=== PATIENT | female | born 1970 | race Caucasian/White ===

== ENCOUNTER 2017-10-26 14:56 | Emergency (ER) | payer OTHER ==
[~2017-10-26] VITALS: Ht 162.6 cm; Wt 77.0 kg
[2017-10-26 14:57] VITALS: BP 156/72; PULSE 76; RESP 16; TEMP 98.5; O2SAT 99
[2017-10-26 16:33] LABS: AUTOMATED NEUTROPHIL # 5.7 TH/MM3 (1.8-7.7); BASOPHIL # 0.1 TH/MM3 (0-0.2); BASOPHIL % 0.9 % (0.0-2.0); EOSINOPHIL # 0.1 TH/MM3 (0-0.4); EOSINOPHIL % 0.7 % (0.0-4.0); HEMATOCRIT 39.7 % (35.0-46.0); HEMOGLOBIN 13.6 GM/DL (11.6-15.3); LYMPH % 23.4 % (9.0-44.0); MEAN CELL VOLUME 86.8 FL (80.0-100.0); MEAN CORPUSCULAR HEMOGLOBIN 29.9 PG (27.0-34.0); MEAN CORPUSCULAR HGB CONC 34.4 % (32.0-36.0); MONO % 9.2 % (0.0-8.0); MONOCYTE # 0.8 TH/MM3 (0-0.9); NEUT % 65.8 % (16.0-70.0); PLATELET COUNT 243 TH/MM3 (150-450); RED BLOOD COUNT 4.57 MIL/MM3 (4.00-5.30); RED CELL DISTRIBUTION WIDTH 12.7 % (11.6-17.2); WHITE BLOOD COUNT 8.7 TH/MM3 (4.0-11.0)
[2017-10-26 16:54] LABS: ALBUMIN 3.3 GM/DL (3.4-5.0); ALT (GPT) 63 U/L (10-53); AST (GOT) 48 U/L (15-37); BICARBONATE 27.6 MEQ/L (21.0-32.0); BLOOD UREA NITROGEN 24 MG/DL (7-18); CALCIUM 9.1 MG/DL (8.5-10.1); CHLORIDE 98 MEQ/L (98-107); GLOMERULAR FILTRATION RATE 90 ML/MIN (>89); GLUCOSE,RANDOM 83 MG/DL (74-106); SODIUM (NA) 133 MEQ/L (136-145)
[2017-10-26 16:56] LABS: ALKALINE PHOSPHATASE 106 U/L (45-117); TOTAL BILIRUBIN ADULT 0.4 MG/DL (0.2-1.0); TOTAL PROTEIN 7.8 GM/DL (6.4-8.2)
== END 2017-10-26 23:11 | disposition left against medical advice (07) ==
LOC: NETRI 14:56
DX: R11.2 Nausea with vomiting, unspecified (principal)
CPT/HCPCS: 80053; 83690; 85025; 99281

== ENCOUNTER 2017-10-28 12:15 | Emergency (ER) | payer OTHER ==
[~2017-10-28] VITALS: Ht 162.6 cm; Wt 80.0 kg
[2017-10-28 12:18] VITALS: BP 137/68; PULSE 104; RESP 26; TEMP 98.2; O2SAT 99
--- NOTE | 2017-10-28 12:23 | PD ---
HPI Chief Complaint: GI Complaint Time Seen by Provider: 12:22 Travel History International Travel<30 days: No Contact w/Intl Traveler<30days: No Traveled to known affect area: No History of Present Illness HPI 47-year-old female with history of IV drug abuse presents emergency department for evaluation of nausea and vomiting 10 days. Patient takes she last used heroin 4 days ago. She was in the emergency department 2 days ago where protocols were initiated in triage but the patient left prior to being seen. In reviewing those records, the patient's lipase is greater than 800. Patient states she continues to have epigastric pain mostly associated with vomiting. It is burning in nature. Denies any fever but she has had chills. Denies chest or tightness. No difficulty breathing. No bowel or urinary symptoms. She has no other symptoms to report. [facility] Past Medical History Cardiovascular Problems: Yes Chest Pain: Yes Inguinal Hernia: Yes (REPAIRED) Respiratory: Yes ?: Not Tubal Ligation: Yes Past Surgical History Abdominal Surgery: Yes Tonsillectomy: Yes Social History Alcohol Use: Yes Tobacco Use: Yes Substance Use: Yes (COCAINE) Allergies-Medications (Allergen,Severity, Reaction): Coded Allergies: No Known Allergies (Unverified Allergy, Unknown, 10/28/17) Reported Meds & Prescriptions Reported Meds & Active Scripts Active No Active Prescriptions or Reported Medications Review of Systems Except as stated in HPI: all other systems reviewed are Neg Physical Exam Narrative GENERAL: Well-nourished female patient, in no acute distress. SKIN: Focused skin assessment warm/dry. HEAD: Atraumatic. Normocephalic. EYES: Pupils equal and round. No scleral icterus. No injection or drainage. ENT: No nasal bleeding or discharge. Mucous membranes pink and moist. NECK: Trachea midline. No JVD. CARDIOVASCULAR: Regular rate and rhythm. No murmur appreciated. RESPIRATORY: No accessory muscle use. Clear to auscultation. Breath sounds equal bilaterally. GASTROINTESTINAL: Abdomen soft, nondistended. Nonspecific tenderness to palpation in generalized inconsistent areas of the abdomen. No guarding. No rebound tenderness. Hepatic and splenic margins not palpable. MUSCULOSKELETAL: No obvious deformities. No clubbing. No cyanosis. No edema. NEUROLOGICAL: Awake and alert. No obvious cranial nerve deficits. Motor grossly within normal limits. Normal speech. PSYCHIATRIC: Appropriate mood and affect; insight and judgment questionable Data Data Last Documented VS Vital Signs Date Time Temp Pulse Resp B/P (MAP) Pulse Ox O2 Delivery O2 Flow Rate FiO2 10/28/17 12:32 71 17 134/88 (103) 100 Room Air 10/28/17 12:18 98.2 Orders Orders Complete Blood Count With Diff (10/28/17 12:25) Comprehensive Metabolic Panel (10/28/17 12:25) Lipase (10/28/17 12:25) Prothrombin Time / Inr (Pt) (10/28/17 12:25) Act Partial Throm Time (Ptt) (10/28/17 12:25) Urinalysis - C+S If Indicated (10/28/17 12:25) Ct Abd/Pel W Iv Contrast(Rout) (10/28/17 12:25) Iv Access Insert/Monitor (10/28/17 12:25) Ecg Monitoring (10/28/17 12:25) Oximetry (10/28/17 12:25) Ondansetron Inj (Zofran Inj) (10/28/17 12:30) Sodium Chlor 0.9% 1000 Ml Inj (Ns 1000 M (10/28/17 12:25) Sodium Chloride 0.9% Flush (Ns Flush) (10/28/17 12:30) Electrocardiogram (10/28/17 12:25) Ketorolac Inj (Toradol Inj) (10/28/17 12:30) Electrocardiogram (10/28/17 ) Troponin I (10/28/17 12:25) Ckmb (Isoenzyme) Profile (10/28/17 12:25) Iohexol 350 Inj (Omnipaque 350 Inj) (10/28/17 13:21) Urine Culture (10/28/17 12:50) Ed Discharge Order (10/28/17 13:46) Labs Laboratory Tests Test 10/28/17 12:45 10/28/17 12:50 White Blood Count 9.3 TH/MM3 Red Blood Count 4.29 MIL/MM3 Hemoglobin 13.2 GM/DL Hematocrit 36.9 % Mean Corpuscular Volume 86.1 FL Mean Corpuscular Hemoglobin 30.9 PG Mean Corpuscular Hemoglobin Concent 35.9 % Red Cell Distribution Width 12.8 % Platelet Count 251 TH/MM3 Mean Platelet Volume 9.0 FL Neutrophils (%) (Auto) 76.6 % Lymphocytes (%) (Auto) 17.0 % Monocytes (%) (Auto) 5.2 % Eosinophils (%) (Auto) 0.6 % Basophils (%) (Auto) 0.6 % Neutrophils # (Auto) 7.1 TH/MM3 Lymphocytes # (Auto) 1.6 TH/MM3 Monocytes # (Auto) 0.5 TH/MM3 Eosinophils # (Auto) 0.1 TH/MM3 Basophils # (Auto) 0.1 TH/MM3 CBC Comment DIFF FINAL Differential Comment Prothrombin Time 10.1 SEC Prothromb Time International Ratio 1.0 RATIO Activated Partial Thromboplast Time 25.9 SEC Blood Urea Nitrogen 17 MG/DL Creatinine 0.81 MG/DL Random Glucose 95 MG/DL Total Protein 7.3 GM/DL Albumin 3.3 GM/DL Calcium Level 9.0 MG/DL Alkaline Phosphatase 99 U/L Aspartate Amino Transf (AST/SGOT) 42 U/L Alanine Aminotransferase (ALT/SGPT) 63 U/L Total Bilirubin 0.3 MG/DL Sodium Level 137 MEQ/L Potassium Level 3.7 MEQ/L Chloride Level 100 MEQ/L Carbon Dioxide Level 29.8 MEQ/L Anion Gap 7 MEQ/L Estimat Glomerular Filtration Rate 76 ML/MIN Total Creatine Kinase 48 U/L Troponin I LESS THAN 0.02 NG/ML Lipase 299 U/L Urine Color YELLOW Urine Turbidity CLOUDY Urine pH 6.0 Urine Specific [place] 1.026 Urine Protein 30 mg/dL Urine Glucose (UA) NEG mg/dL Urine Ketones TRACE mg/dL Urine Occult Blood NEG Urine Nitrite NEG Urine Bilirubin NEG Urine Urobilinogen 2.0 MG/DL Urine Leukocyte Esterase MOD Urine RBC 1 /hpf Urine WBC 17 /hpf Urine Squamous Epithelial Cells 14 /hpf Urine Amorphous Sediment FEW Urine Bacteria MOD /hpf Urine Hyaline Casts 30 /lpf Urine Mucus MANY /lpf Microscopic Urinalysis Comment CULTURE INDICATED MDM Medical Decision Making Medical Screen Exam Complete: Yes Emergency Medical Condition: Yes Medical Record Reviewed: Yes Differential Diagnosis Pancreatitis versus gastritis versus indigestion versus opiate withdrawal versus dependency Narrative Course 47-year-old female presents to emergency department for evaluation of nausea and vomiting 10 days with associated epigastric burning. Patient appears without distress. Her vital signs are stable. She has inconsistent tenderness to palpation of her general abdomen. No guarding or rebound tenderness. In review of her record, patient did have a lipase of greater than 800 on October 26. Patient is treated for pain and nausea. Lab work is repeated as well CT of the abdomen and pelvis is ordered. Laboratory Tests Test 10/28/17 12:45 10/28/17 12:50 White Blood Count 9.3 TH/MM3 Red Blood Count 4.29 MIL/MM3 Hemoglobin 13.2 GM/DL Hematocrit 36.9 % Mean Corpuscular Volume 86.1 FL Mean Corpuscular Hemoglobin 30.9 PG Mean Corpuscular Hemoglobin Concent 35.9 % Red Cell Distribution Width 12.8 % Platelet Count 251 TH/MM3 Mean Platelet Volume 9.0 FL Neutrophils (%) (Auto) 76.6 % Lymphocytes (%) (Auto) 17.0 % Monocytes (%) (Auto) 5.2 % Eosinophils (%) (Auto) 0.6 % Basophils (%) (Auto) 0.6 % Neutrophils # (Auto) 7.1 TH/MM3 Lymphocytes # (Auto) 1.6 TH/MM3 Monocytes # (Auto) 0.5 TH/MM3 Eosinophils # (Auto) 0.1 TH/MM3 Basophils # (Auto) 0.1 TH/MM3 CBC Comment DIFF FINAL Differential Comment Prothrombin Time 10.1 SEC Prothromb Time International Ratio 1.0 RATIO Activated Partial Thromboplast Time 25.9 SEC Blood Urea Nitrogen 17 MG/DL Creatinine 0.81 MG/DL Random Glucose 95 MG/DL Total Protein 7.3 GM/DL Albumin 3.3 GM/DL Calcium Level 9.0 MG/DL Alkaline Phosphatase 99 U/L Aspartate Amino Transf (AST/SGOT) 42 U/L Alanine Aminotransferase (ALT/SGPT) 63 U/L Total Bilirubin 0.3 MG/DL Sodium Level 137 MEQ/L Potassium Level 3.7 MEQ/L Chloride Level 100 MEQ/L Carbon Dioxide Level 29.8 MEQ/L Anion Gap 7 MEQ/L Estimat Glomerular Filtration Rate 76 ML/MIN Total Creatine Kinase 48 U/L Troponin I LESS THAN 0.02 NG/ML Lipase 299 U/L Urine Color YELLOW Urine Turbidity CLOUDY Urine pH 6.0 Urine Specific [place] 1.026 Urine Protein 30 mg/dL Urine Glucose (UA) NEG mg/dL Urine Ketones TRACE mg/dL Urine Occult Blood NEG Urine Nitrite NEG Urine Bilirubin NEG Urine Urobilinogen 2.0 MG/DL Urine Leukocyte Esterase MOD Urine RBC 1 /hpf Urine WBC 17 /hpf Urine Squamous Epithelial Cells 14 /hpf Urine Amorphous Sediment FEW Urine Bacteria MOD /hpf Urine Hyaline Casts 30 /lpf Urine Mucus MANY /lpf Microscopic Urinalysis Comment CULTURE INDICATED CT imaging results 1. 2 mm nonobstructing right renal stone. 2. 2 hypodensities in the liver likely related to cysts or hemangiomas. 3. Soft tissue density seen immediately deep to the anterior abdominal wall musculature in the upper abdomen in the midline. This is nonspecific. It could be related to postsurgical change if the patient's had a prior midline incision. There appears to be possible postoperative change in the midline of the anterior abdominal wall in this region. Patient will be discharged home. She is encouraged follow-up with primary care provider. She is encouraged to stop using IV drugs. She agrees to return immediately with any acute worsening of symptoms. Diagnosis Primary Impression: Nausea & vomiting Qualified Codes: R11.2 - Nausea with vomiting, unspecified Additional Impressions: UTI (urinary tract infection) Qualified Codes: N39.0 - Urinary tract infection, site not specified IV drug abuse Referrals: [facility] (Out patient) Primary Care Physician Patient Instructions: General Instructions, Narcotic Abuse (ED), Urinary Tract Infection in Women (ED) Additional Instructions: It is important that you stop using IV drugs Follow-up with a primary care provider Return immediately with any acute worsening of symptoms Med/Other Pt SpecificInfo: Prescription(s) given Scripts Promethazine (Phenergan) 25 Mg Tablet 25 MG PO Q6H Y for NAUSEA OR VOMITING, #10 TAB 0 Refills Prov: Hanh Carrizales 10/28/17 Cephalexin (Keflex) 500 Mg Cap 500 MG PO Q12H for Infection, #14 CAP 0 Refills Prov: Hanh Carrizales 10/28/17 Disposition: 01 DISCHARGE HOME Condition: Stable Hanh Carrizales Oct 28, 2017 12:23
[2017-10-28] MEDS ORDERED: SODIUM CHLOR 0.9% 1000 ML INJ 1,000 ML IV SCH (12:25)
[2017-10-28] MEDS ORDERED: KETOROLAC TROMETHAMINE 30 MG/ML (IVP) VIAL IVP ONE (12:30)
[2017-10-28] MEDS ORDERED: ONDANSETRON HCL 4 MG/2 ML VIAL IVP ONE (12:30)
[2017-10-28] MEDS ORDERED: SODIUM CHLORIDE 0.9% FLUSH 10 ML FLUSH IV FLUSH PRN (12:30)
[2017-10-28 12:32] VITALS: BP 134/88; PULSE 71; RESP 17; O2SAT 100
[2017-10-28] MEDS ORDERED: IOHEXOL 350 MG/ML 10 ML VIAL (for RAD DIAG) IVCONTRAST ONE (13:21)
[2017-10-28 13:27] LABS: AUTOMATED NEUTROPHIL # 7.1 TH/MM3 (1.8-7.7); BASOPHIL # 0.1 TH/MM3 (0-0.2); BASOPHIL % 0.6 % (0.0-2.0); EOSINOPHIL # 0.1 TH/MM3 (0-0.4); EOSINOPHIL % 0.6 % (0.0-4.0); HEMATOCRIT 36.9 % (35.0-46.0); HEMOGLOBIN 13.2 GM/DL (11.6-15.3); LYMPHOCYTE # 1.6 TH/MM3 (1.0-4.8); MEAN CELL VOLUME 86.1 FL (80.0-100.0); MEAN CORPUSCULAR HEMOGLOBIN 30.9 PG (27.0-34.0); MEAN CORPUSCULAR HGB CONC 35.9 % (32.0-36.0); MONO % 5.2 % (0.0-8.0); MONOCYTE # 0.5 TH/MM3 (0-0.9); NEUT % 76.6 % (16.0-70.0); PLATELET COUNT 251 TH/MM3 (150-450); RED BLOOD COUNT 4.29 MIL/MM3 (4.00-5.30); RED CELL DISTRIBUTION WIDTH 12.8 % (11.6-17.2); WHITE BLOOD COUNT 9.3 TH/MM3 (4.0-11.0)
[2017-10-28 13:28] LABS: AMORPHOUS SEDIMENT, URINE FEW; BACTERIA, URINE MOD /hpf; BILIRUBIN, URINE NEG (NEG); BLOOD, URINE NEG (NEG); GLUCOSE,URINE NEG (NEG); HYALINE CAST, URINE 30 /lpf (RARE); KETONE, URINE TRACE mg/dL (NEG); MUCUS URINE MANY /lpf (OCC); NITRITE,URINE NEG (NEG); SQUAMOUS EPITHELIAL CELL URINE 14 /hpf (0-5); URINE COLOR YELLOW (YELLW/STRAW); URINE LEUKOCYTE ESTERASE MOD (NEG)
[2017-10-28 13:30] LABS: PROTHROMBIN TIME - PATIENT 10.1 SEC (9.8-11.6)
[2017-10-28 13:38] LABS: ALBUMIN 3.3 GM/DL (3.4-5.0); ALT (GPT) 63 U/L (10-53); AST (GOT) 42 U/L (15-37); BICARBONATE 29.8 MEQ/L (21.0-32.0); BLOOD UREA NITROGEN 17 MG/DL (7-18); CHLORIDE 100 MEQ/L (98-107); CREATININE 0.81 MG/DL (0.50-1.00); GLOMERULAR FILTRATION RATE 76 ML/MIN (>89); GLUCOSE,RANDOM 95 MG/DL (74-106); SODIUM (NA) 137 MEQ/L (136-145)
--- NOTE | 2017-10-28 13:40 | RADRPT ---
EXAM DATE/TIME: 10/28/2017 13:10 [place] COMPARISON: No previous studies available for comparison. INDICATIONS : Nausea, vomiting and diffuse abdomen pain for nine days. IV CONTRAST: 56 cc Omnipaque 350 (iohexol) IV ORAL CONTRAST: No oral contrast ingested. RADIATION DOSE: 8.01 CTDIvol (mGy) MEDICAL HISTORY : Hernia, inguinal. Cardiovascular disease SURGICAL HISTORY : Tubal ligation. ENCOUNTER: Initial ACUITY: 2 weeks PAIN SCALE: 5/10 LOCATION: Bilateral abdomen TECHNIQUE: Volumetric scanning of the abdomen and pelvis was performed. Using automated exposure control and ad justment of the mA and/or kV according to patient size, radiation dose was kept as low as reasonably achievable to obtain optimal diagnostic quality images. DICOM format image data is available electro nically for review and comparison. FINDINGS: LOWER LUNGS: There is increased density at the posterior lower lungs bilaterally likely related to consolidation o r atelectasis. LIVER: There are two 1.2 cm hypodensities seen in the right lobe of the liver. These likely represent cysts or hemangiomas. The gallbladder is unremarkable. SPLEEN: Normal size without lesion. PANCREAS: Within normal limits. KIDNEYS: Normal in size and shape. There is a 2 mm nonobstructing right renal stone. There is no mass or hydr onephrosis. ADRENAL GLANDS: Within normal limits. VASCULAR: There is no aortic aneurysm. BOWEL/MESENTERY: The stomach, small bowel, and colon demonstrate no acute abnormality. There is no free intraperitone al air or fluid. ABDOMINAL WALL: There is narrowing of soft tissue density seen immediately deep to the anterior abdominal wall at the midline over the upper abdomen above the umbilicus measuring 4.5 cm transverse dimension, 3.9 cm in AP dimension and 1.1 cm in thickness. This could be related to postsurgical change if the patient's m idline incision. RETROPERITONEUM: There is no lymphadenopathy. BLADDER: No wall thickening or mass. REPRODUCTIVE: There are clips seen at the superior lateral aspects of the uterus likely from prior tubal ligation. INGUINAL: There is no lymphadenopathy or hernia. MUSCULOSKELETAL: Within normal limits for patient age. CONCLUSION: 1. 2 mm nonobstructing right renal stone. 2. 2 hypodensities in the liver likely related to cysts or hemangiomas. 3. Soft tissue density seen immediately deep to the anterior abdominal wall musculature in the upper abdomen in the midline. This is nonspecific. It could be related to postsurgical change if the patien t's had a prior midline incision. There appears to be possible postoperative change in the midline of the anterior abdominal wall in this region. Jack Suarez MD on October 28, 2017 at 13:25 Board Certified Radiologist. This report was verified electronically.
[2017-10-28 13:43] LABS: ALKALINE PHOSPHATASE 99 U/L (45-117); TOTAL BILIRUBIN ADULT 0.3 MG/DL (0.2-1.0); TOTAL PROTEIN 7.3 GM/DL (6.4-8.2); TROPONIN I LESS THAN 0.02 NG/ML (0.02-0.05)
[2017-10-28] MEDS ORDERED: PROM25TA10 PO (13:54)
[2017-10-28] MEDS ORDERED: CEPH-460 PO (13:54)
--- NOTE | 2017-10-29 14:34 | EKG ---
Date Performed: 10/28/2017 Time Performed: 12:41:59 PTAGE: 47 years EKG: SINUS BRADYCARDIA BORDERLINE ECG Normalization of ST compared to prior tracing PREVIOUS TRACING : 01/09/2014 17.55 DOCTOR: Kervin Lora Interpretating Date/Time 10/29/2017 14:33:28
== END 2017-10-28 14:43 | disposition home or self-care (01) ==
LOC: NEPE 12:15
DX: R11.2 Nausea with vomiting, unspecified (principal); N39.0 Urinary tract infection, site not specified; R10.13 Epigastric pain; N20.0 Calculus of kidney; R94.31 Abnormal electrocardiogram [ECG] [EKG]; F14.90 Cocaine use, unspecified, uncomplicated; Z72.0 Tobacco use
CPT/HCPCS: 74177; 80053; 81001; 82550; 83690; 84484; 85025; 85610; 85730; 87086; 93005; 96374; 96375; 99285; J1885; J2405; J7030; Q9967

== ENCOUNTER 2018-01-12 22:32 | Emergency (ER) | payer OTHER ==
[~2018-01-12] VITALS: Ht 162.6 cm; Wt 80.0 kg
[~2018-01-12 22:32] MED LIST: CEPH-460 PO; PROM25TA10 PO
[2018-01-12 22:42] VITALS: BP 117/73; PULSE 88; RESP 18; TEMP 98.6; O2SAT 97
--- NOTE | 2018-01-12 23:17 | PD ---
HPI Chief Complaint: Psychiatric Symptoms Time Seen by Provider: 23:09 Travel History International Travel<30 days: No Contact w/Intl Traveler<30days: No Traveled to known affect area: No History of Present Illness HPI 47-year-old white female presents emergency department under [place] act by PD. Patient allegedly had made suicidal statements. She has been drinking a large amount of alcohol. After conversation with the nursing staff it was revealed to the nurse that she had intentionally overdosed on 20-30 ibuprofen tablets 200 mg. The ingestion occurred approximately 8:00 PM. The patient denies any other coingestion. There is also alleged ingestion of bleach 2 weeks ago. She states that she had swallowed amount of bleach but was never seen at that time. She states that she did vomit immediately. She has not had any difficulty swallowing since then. No shortness of breath or wheezing. Patient denies any drug use. She denies any homicidal ideation. She denies any active plan on suicide other than her ingestion. Symptoms are severe. Symptoms are exacerbated by alcohol and depression. No alleviating factors. PFSH Past Medical History Narrative Medical COPD, pancreatitis. History of depression. Cardiovascular Problems: Yes Chest Pain: Yes Inguinal Hernia: Yes (REPAIRED) Respiratory: Yes Tetanus Vaccination: < 5 Years ?: Not LMP: 12/31/2017 Tubal Ligation: Yes Past Surgical History Tonsillectomy: Yes Other Surgery: Yes (Inguinal herniorrhaphy) Social History Alcohol Use: Yes Tobacco Use: Yes Substance Use: No Allergies-Medications (Allergen,Severity, Reaction): Coded Allergies: No Known Allergies (Unverified Allergy, Unknown, 10/28/17) Reported Meds & Prescriptions Reported Meds & Active Scripts Active Phenergan (Promethazine HCl) 25 Mg Tablet 25 Mg PO Q6H PRN Keflex (Cephalexin) 500 Mg Cap 500 Mg PO Q12H Review of Systems General / Constitutional: No: Fever Eyes: No: Visual changes HENT: No: Headaches Cardiovascular: No: Chest Pain or Discomfort Respiratory: No: Shortness of Breath Gastrointestinal: No: Nausea, Vomiting, Abdominal Pain Genitourinary: No: Dysuria Musculoskeletal: No: Pain Skin: No Rash Neurologic: No: Weakness Psychiatric: Positive: Depression, Suicidal Ideations, Mood Disorder, No: Anxiety, Disorder of Thought, Substance Abuse, Homicidal Ideation Endocrine: No: Polydipsia Hematologic/Lymphatic: No: Easy Bruising Physical Exam Narrative GENERAL: Well-nourished, well-developed patient. SKIN: Warm and dry. HEAD: Normocephalic and atraumatic. EYES: No scleral icterus. No injection or drainage. ENT: No nasal drainage noted. Mucous membranes pink. Airway patent. NECK: Supple, trachea midline. Moves head freely without obvious discomfort. CARDIOVASCULAR: Regular rate and rhythm without murmurs, gallops, or rubs. RESPIRATORY: Breath sounds equal bilaterally. No accessory muscle use. GASTROINTESTINAL: Abdomen soft, non-tender, nondistended. EXTREMITIES: No cyanosis or edema. BACK: Nontender without obvious deformity. No CVA tenderness. NEURO: Patient is alert and oriented. no sensorimotor deficits. Nonfocal. Normal speech. PSYCH: No delusions. No auditory or visual hallucinations. Data Data Last Documented VS Vital Signs Date Time Temp Pulse Resp B/P (MAP) Pulse Ox O2 Delivery O2 Flow Rate FiO2 01/12/18 22:42 98.6 88 18 117/73 (88) 97 Orders Orders Complete Blood Count With Diff (01/12/18 23:09) Comprehensive Metabolic Panel (01/12/18 23:09) Thyroid Stimulating Hormone (01/12/18 23:09) Urinalysis - C+S If Indicated (01/12/18 23:09) Ed Urine Pregnancytest Poc (01/12/18 23:09) Electrocardiogram (01/12/18 23:09) Psych Screen (01/12/18 23:09) Drug Screen, Random Urine (01/12/18 23:09) Alcohol (Ethanol) (01/12/18 23:09) Salicylates (Aspirin) (01/12/18 23:09) Tylenol (Acetaminophen) (01/12/18 23:09) MDM Medical Decision Making Medical Screen Exam Complete: Yes Emergency Medical Condition: Yes Medical Record Reviewed: Yes Differential Diagnosis MDM: High Differential diagnoses: Overdose, schizophrenia, schizoaffective disorder, bipolar, anxiety, depression, adjustment reaction, mood disorder NOS, ODD, depressive disorder NOS, psychosis NOS, substance induced mood disorder, infection,electrolyte abnormality, malingering. Narrative Course Mental health screening discussed with the patient. Psychiatric screen ordered. Nursing staff has been advised to notify poison control. Patient's ingestion is not typically toxic. Patient will be monitored. Condition: Stable Bradley Reeves January 12, 2018 23:17
[2018-01-12 23:56] LABS: AUTOMATED NEUTROPHIL # 4.5 TH/MM3 (1.8-7.7); BASOPHIL # 0.1 TH/MM3 (0-0.2); EOSINOPHIL # 0.1 TH/MM3 (0-0.4); EOSINOPHIL % 1.2 % (0.0-4.0); HEMATOCRIT 42.8 % (35.0-46.0); HEMOGLOBIN 14.5 GM/DL (11.6-15.3); LYMPH % 34.1 % (9.0-44.0); LYMPHOCYTE # 2.8 TH/MM3 (1.0-4.8); MEAN CELL VOLUME 86.6 FL (80.0-100.0); MEAN CORPUSCULAR HEMOGLOBIN 29.3 PG (27.0-34.0); MEAN CORPUSCULAR HGB CONC 33.9 % (32.0-36.0); MEAN PLATELET VOLUME 7.7 FL (7.0-11.0); MONO % 9.1 % (0.0-8.0); MONOCYTE # 0.8 TH/MM3 (0-0.9); NEUT % 54.6 % (16.0-70.0); PLATELET COUNT 310 TH/MM3 (150-450); RED BLOOD COUNT 4.95 MIL/MM3 (4.00-5.30); RED CELL DISTRIBUTION WIDTH 15.2 % (11.6-17.2); WHITE BLOOD COUNT 8.2 TH/MM3 (4.0-11.0)
[2018-01-12 23:56] LABS: BILIRUBIN, URINE NEG (NEG); BLOOD, URINE NEG (NEG); GLUCOSE,URINE NEG (NEG); KETONE, URINE NEG (NEG); NITRITE,URINE NEG (NEG); PH, URINE 5.5 (5.0-8.5); SQUAMOUS EPITHELIAL CELL URINE 3 /hpf (0-5); URINE COLOR COLORLESS (YELLW/STRAW); URINE LEUKOCYTE ESTERASE NEG (NEG)
[2018-01-13 00:12] LABS: ALBUMIN 3.6 GM/DL (3.4-5.0); AST (GOT) 34 U/L (15-37); BICARBONATE 28.1 MEQ/L (21.0-32.0); BLOOD UREA NITROGEN 14 MG/DL (7-18); CALCIUM 8.1 MG/DL (8.5-10.1); CHLORIDE 109 MEQ/L (98-107); CREATININE 0.81 MG/DL (0.50-1.00); GLOMERULAR FILTRATION RATE 76 ML/MIN (>89); GLUCOSE,RANDOM 83 MG/DL (74-106); SODIUM (NA) 145 MEQ/L (136-145)
[2018-01-13 00:23] LABS: ALKALINE PHOSPHATASE 100 U/L (45-117); ALT (GPT) 37 U/L (10-53); TOTAL BILIRUBIN ADULT 0.2 MG/DL (0.2-1.0); TOTAL PROTEIN 8.1 GM/DL (6.4-8.2)
[2018-01-13 00:33] LABS: ACETAMINOPHEN LESS THAN 2.0 MCG/ML (10.0-30.0)
[2018-01-13 02:11] VITALS: BP 109/64; PULSE 84; RESP 18; TEMP 97.8; O2SAT 98
[2018-01-13 06:35] VITALS: BP 111/61; PULSE 78; RESP 18; TEMP 99.2; O2SAT 94
--- NOTE | 2018-01-13 11:05 | PD ---
History of Present Illness Chief Complaint: Psychiatric Symptoms Time Seen by Provider: 10:15 Travel History International Travel<30 Days: No Contact w/Intl Traveler<30days: No Known affected area: No Legal Status Legal Status: Geronimo Act Geronimo Act Signed By: Roly Rueda History of Present Illness: Patient is a 47-year-old female , with 9 children who was placed under a Geronimo act by [employer]. Geronimo act states; Latasha has a history of mental illness, is not on medication, and recently drank bleach to harm herself she call 911 today and stated that she wanted to harm herself, but would not discuss the means. Currently, she is alert and oriented 4, alcohol and admits to suicidal ideation. She reports that she is going to run if she did not get help. Her reports that she made statements to him regarding having no will to live. Patient states that she was in residential for two years from 03/07/16 until 08/27/17. 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 She states that she loves her job and is doing well. She has nine children between the ages of 8 to 30 years old and they live with their father. She has recently been able to speak to a few of them. Her current boyfriend "" is an alcoholic and is homeless. He is not allowed in the motel because one of the stipulations is that she will not have any guests. She states that the bleach bottle had a leak and she only had a sprite bottle , so she placed the bleach in the sprite bottle. She thought she was going to drink sprite when she sipped the bottle containing the bleach. She states that this was "totally an accident" and she had no intention of harming herself. She has had care for her depression and anxiety, but need to re-establish a provider. Her alcohol level on arrival was 285. Chart reviewed and patient discussed with ROLA Ortega. Patient is in room J104 in the Emergency Department. Patient is alert and oriented x4. She has good eye contact and engages in conversation. She is well kept and has a "smokers cough." Fund of knowledge is good. Insight and judgement good. She has good recall of past events. She is euthymic and anxious. no abnormal thought processes. Steady gait and very flexible. Patient acknowledges many stressors : her boyfriend "'s" drinking; financial and not being able to see her children. She states that her current job is the best thing that has happened to her. The [employer] loves her and she is happy working there. She feels that she has a roof over her head and food which keeps her going. She did disclose that she has had multiple suicidal ideations ( x18) in the past. She endorses no suicidal ideation today. She is pre-occupied with returning to the [employer] so that she does not loose her job. Dx: Mood Disorder, Alcohol Induced ; Alcohol Abuse Disorder PFSH Past Medical History Cardiovascular Problems: Yes Chest Pain: Yes Inguinal Hernia: Yes (REPAIRED) Respiratory: Yes Tetanus Vaccination: < 5 Years ?: Not LMP: 12/31/2017 Tubal Ligation: Yes Past Surgical History Tonsillectomy: Yes Other Surgery: Yes (Inguinal herniorrhaphy) Psychiatric History Psychiatric History She is recently out of residential. Has a history of depression and anxiety . She needs to re-establish with a provider. Hx Psychiatric Treatment: Patient with a self-reported hx of depression. History of Inpatient Treatment: No Social History Hx Alcohol Use: Yes Hx Tobacco Use: Yes Hx Substance Use: No Substance Use Type: Alcohol, Nicotine/Cigarettes Hx of Substance Use Treatment: No Allergies-Medications (Allergen,Severity, Reaction): Coded Allergies: No Known Allergies (Unverified Allergy, Unknown, 10/28/17) Reported Meds & Prescriptions Reported Meds & Active Scripts Active Phenergan (Promethazine HCl) 25 Mg Tablet 25 Mg PO Q6H PRN Keflex (Cephalexin) 500 Mg Cap 500 Mg PO Q12H Mental Status Examination Appearance: Appropriate Consciousness: Alert Orientation: x4 Motor Activity: Normal gait Speech: Unremarkable Language: Adequate Fund of Knowledge: Adequate Attention and Concentration: Adequate Memory: Unremarkable Mood: Appropriate Affect: Euthymic Thought Process & Associations: Intact Thought Content: Appropriate Hallucination Type: None Delusion Type: None Suicidal Ideation: No Suicidal Plan: No Suicidal Intention: No Homicidal Ideation: No Homicidal Plan: No Homicidal Intention: No Insight: Adequate Judgment: Adequate MDM Medical Decision Making Medical Record Reviewed: Yes Assessment/Plan Patient is a 47 y/o female with multiple stressors: recently released from residential, is an alcoholic, financial and unable to see her children. She was placed under a Geronimo Act by her . She lives in a motel and works at the motel. is homeless and she is not allowed to have any guests. Patient states she was just anxious yesterday and has no suicidal ideations. She had an alcohol level of 285. Today she is alert and oriented. She is preoccupied with returning to the motel so that she does not loose her job. Patient is at low risk for self harm or harm to others. She is willing to follow up to be treated for her depression and anxiety. She is at low risk for self harm. Will lift the Geronimo Act and give the patient information on [facility] for assistance with her depression and anxiety, as well as, information on the [facility] for treatment regarding alcohol use. Orders Orders Complete Blood Count With Diff (01/12/18 23:09) Comprehensive Metabolic Panel (01/12/18 23:09) Thyroid Stimulating Hormone (01/12/18 23:09) Urinalysis - C+S If Indicated (01/12/18 23:09) Ed Urine Pregnancytest Poc (01/12/18 23:09) Electrocardiogram (01/12/18 23:09) Psych Screen (01/12/18 23:09) Drug Screen, Random Urine (01/12/18 23:09) Alcohol (Ethanol) (01/12/18 23:09) Salicylates (Aspirin) (01/12/18 23:09) Tylenol (Acetaminophen) (01/12/18 23:09) Diet Regular Basic (01/13/18 Breakfast) Results Vital Signs Date Time Temp Pulse Resp B/P (MAP) Pulse Ox O2 Delivery O2 Flow Rate FiO2 01/13/18 06:35 99.2 78 18 111/61 (78) 94 Room Air 01/13/18 02:11 97.8 84 18 109/64 (79) 98 Room Air 01/12/18 22:42 98.6 88 18 117/73 (88) 97 Laboratory Tests Test 01/12/18 22:49 01/12/18 22:59 Urine Color COLORLESS Urine Turbidity CLEAR Urine pH 5.5 Urine Specific [place] 1.002 Urine Protein NEG Urine Glucose (UA) NEG Urine Ketones NEG Urine Occult Blood NEG Urine Nitrite NEG Urine Bilirubin NEG Urine Urobilinogen LESS THAN 2.0 Urine Leukocyte Esterase NEG Urine RBC LESS THAN 1 Urine WBC LESS THAN 1 Urine Squamous Epithelial Cells 3 Microscopic Urinalysis Comment CULT NOT INDICATED Urine Opiates Screen NEG Urine Barbiturates Screen NEG Urine Amphetamines Screen NEG Urine Benzodiazepines Screen NEG Urine Cocaine Screen NEG Urine Cannabinoids Screen NEG White Blood Count 8.2 Red Blood Count 4.95 Hemoglobin 14.5 Hematocrit 42.8 Mean Corpuscular Volume 86.6 Mean Corpuscular Hemoglobin 29.3 Mean Corpuscular Hemoglobin Concent 33.9 Red Cell Distribution Width 15.2 Platelet Count 310 Mean Platelet Volume 7.7 Neutrophils (%) (Auto) 54.6 Lymphocytes (%) (Auto) 34.1 Monocytes (%) (Auto) 9.1 Eosinophils (%) (Auto) 1.2 Basophils (%) (Auto) 1.0 Neutrophils # (Auto) 4.5 Lymphocytes # (Auto) 2.8 Monocytes # (Auto) 0.8 Eosinophils # (Auto) 0.1 Basophils # (Auto) 0.1 CBC Comment DIFF FINAL Differential Comment Blood Urea Nitrogen 14 Creatinine 0.81 Random Glucose 83 Total Protein 8.1 Albumin 3.6 Calcium Level 8.1 Alkaline Phosphatase 100 Aspartate Amino Transf (AST/SGOT) 34 Alanine Aminotransferase (ALT/SGPT) 37 Total Bilirubin 0.2 Sodium Level 145 Potassium Level 4.1 Chloride Level 109 Carbon Dioxide Level 28.1 Anion Gap 8 Estimat Glomerular Filtration Rate 76 Thyroid Stimulating Hormone 3rd Gen 1.540 Salicylates Level 3.0 Acetaminophen Level LESS THAN 2.0 Ethyl Alcohol Level 285 Diagnosis Primary Impression: Depression with anxiety Additional Impression: Alcohol use disorder Disposition: 01 DISCHARGE HOME Condition: Stable Problem Qualifiers Liza Mayer January 13, 2018 11:05
--- NOTE | 2018-01-13 11:39 | PD ---
Physical Exam Date Seen by Provider: January 13, 2018 Time Seen by Provider: 11:35 Narrative 47-year-old female previously Geronmio acted and medically cleared for psychiatric evaluation, has been seen and evaluated by psychiatric staff and deemed psychiatrically stable for discharge at this time. Patient remains medically stable for discharge at this time. Follow-up will be based on psychiatric note. Data Data Last Documented VS Vital Signs Date Time Temp Pulse Resp B/P (MAP) Pulse Ox O2 Delivery O2 Flow Rate FiO2 01/13/18 06:35 99.2 78 18 111/61 (78) 94 Room Air Orders Orders Complete Blood Count With Diff (01/12/18 23:09) Comprehensive Metabolic Panel (01/12/18 23:09) Thyroid Stimulating Hormone (01/12/18 23:09) Urinalysis - C+S If Indicated (01/12/18 23:09) Ed Urine Pregnancytest Poc (01/12/18 23:09) Electrocardiogram (01/12/18 23:09) Psych Screen (01/12/18 23:09) Drug Screen, Random Urine (01/12/18 23:09) Alcohol (Ethanol) (01/12/18 23:09) Salicylates (Aspirin) (01/12/18 23:09) Tylenol (Acetaminophen) (01/12/18 23:09) Diet Regular Basic (01/13/18 Breakfast) Diet Regular Basic (01/13/18 Lunch) Labs Laboratory Tests Test 01/12/18 22:49 01/12/18 22:59 Urine Color COLORLESS Urine Turbidity CLEAR Urine pH 5.5 Urine Specific [place] 1.002 Urine Protein NEG mg/dL Urine Glucose (UA) NEG mg/dL Urine Ketones NEG mg/dL Urine Occult Blood NEG Urine Nitrite NEG Urine Bilirubin NEG Urine Urobilinogen LESS THAN 2.0 MG/DL Urine Leukocyte Esterase NEG Urine RBC LESS THAN 1 /hpf Urine WBC LESS THAN 1 /hpf Urine Squamous Epithelial Cells 3 /hpf Microscopic Urinalysis Comment CULT NOT INDICATED Urine Opiates Screen NEG Urine Barbiturates Screen NEG Urine Amphetamines Screen NEG Urine Benzodiazepines Screen NEG Urine Cocaine Screen NEG Urine Cannabinoids Screen NEG White Blood Count 8.2 TH/MM3 Red Blood Count 4.95 MIL/MM3 Hemoglobin 14.5 GM/DL Hematocrit 42.8 % Mean Corpuscular Volume 86.6 FL Mean Corpuscular Hemoglobin 29.3 PG Mean Corpuscular Hemoglobin Concent 33.9 % Red Cell Distribution Width 15.2 % Platelet Count 310 TH/MM3 Mean Platelet Volume 7.7 FL Neutrophils (%) (Auto) 54.6 % Lymphocytes (%) (Auto) 34.1 % Monocytes (%) (Auto) 9.1 % Eosinophils (%) (Auto) 1.2 % Basophils (%) (Auto) 1.0 % Neutrophils # (Auto) 4.5 TH/MM3 Lymphocytes # (Auto) 2.8 TH/MM3 Monocytes # (Auto) 0.8 TH/MM3 Eosinophils # (Auto) 0.1 TH/MM3 Basophils # (Auto) 0.1 TH/MM3 CBC Comment DIFF FINAL Differential Comment Blood Urea Nitrogen 14 MG/DL Creatinine 0.81 MG/DL Random Glucose 83 MG/DL Total Protein 8.1 GM/DL Albumin 3.6 GM/DL Calcium Level 8.1 MG/DL Alkaline Phosphatase 100 U/L Aspartate Amino Transf (AST/SGOT) 34 U/L Alanine Aminotransferase (ALT/SGPT) 37 U/L Total Bilirubin 0.2 MG/DL Sodium Level 145 MEQ/L Potassium Level 4.1 MEQ/L Chloride Level 109 MEQ/L Carbon Dioxide Level 28.1 MEQ/L Anion Gap 8 MEQ/L Estimat Glomerular Filtration Rate 76 ML/MIN Thyroid Stimulating Hormone 3rd Gen 1.540 uIU/ML Salicylates Level 3.0 MG/DL Acetaminophen Level LESS THAN 2.0 MCG/ML Ethyl Alcohol Level 285 MG/DL [facility] Medical Record Reviewed: Yes Supervised Visit with NICOLA: Yes Narrative Course 47-year-old female previously Geronimo acted and medically cleared for psychiatric evaluation, has been seen and evaluated by psychiatric staff and deemed psychiatrically stable for discharge at this time. Patient remains medically stable for discharge at this time. Follow-up will be based on psychiatric note. Diagnosis Primary Impression: Depression with anxiety Additional Impression: Alcohol use disorder Disposition: DISCHARGE HOME Condition: Stable Yordan Pichardo January 13, 2018 11:39
--- NOTE | 2018-01-13 17:14 | EKG ---
Date Performed: 01/12/2018 Time Performed: 23:23:03 PTAGE: 47 years EKG: Sinus rhythm ARM LEADS REVERSED ATYPICAL ECG Compared to PREVIOUS TRACING , rate faster DOCTOR: Suzy Pugh Interpretating Date/Time 01/13/2018 17:12:21
== END 2018-01-13 12:33 | disposition home or self-care (01) ==
LOC: NEPJ 22:32
DX: F41.8 Other specified anxiety disorders (principal); R45.851 Suicidal ideations; R07.9 Chest pain, unspecified; J44.9 Chronic obstructive pulmonary disease, unspecified; F10.129 Alcohol abuse with intoxication, unspecified; Y90.8 Blood alcohol level of 240 mg/100 ml or more; Z72.0 Tobacco use
CPT/HCPCS: 80053; 80307; 81001; 84443; 84703; 85025; 93005; 99284

== ENCOUNTER 2018-01-23 02:14 | Inpatient (IN) | payer OTHER ==
[2018-01-23] VITALS (18 sets, daily range): BP systolic 93–124; BP diastolic 53–77; PULSE 62–87; RESP 16–32; TEMP 97.8–98.5; O2SAT 96–100
[~2018-01-23] VITALS: Ht 162.6 cm; Wt 76.0 kg
[2018-01-23] MEDS ORDERED: SODIUM CHLOR 0.9% 1000 ML INJ 1,000 ML IV ONE (02:26)
[2018-01-23] MEDS ORDERED: SODIUM CHLORIDE 0.9% FLUSH 10 ML FLUSH IVF PRN ×2 (02:30→02:45)
--- NOTE | 2018-01-23 02:33 | PD ---
HPI Chief Complaint: Psychiatric Symptoms Time Seen by Provider: 02:26 Travel History International Travel<30 days: No Contact w/Intl Traveler<30days: No Traveled to known affect area: No History of Present Illness HPI The patient is a 47 year old female who presents to the [facility] emergency department with a history of intentionally overdosing on aspirin prior to arrival. The patient bought a bottle of aspirin at a local store at approximately 11 PM and shortly thereafter she took a handful of the aspirin tablets. She reports that she then had nausea vomiting 1. She reports that she thought that she may be vomiting the aspirin related to not eating. She then ate a meal and intermittently since then over the next 2 hours was ingesting handfuls of aspirin. The bottle brought in by the patient's EMS crew has 120 tablets missing. The aspirin tablet is a 325 mg tablet. The patient reports that she has vomited again 1. The emesis was able to be viewed by ambulance services and contained pill fragments. The patient reports a long- standing history of bipolar disorder, schizophrenia, and OCD. She reports that she is supposed to be on medication, however she cannot afford it. She denies having a primary care physician. The patient reports on further questioning that she does not necessarily want to , however she does not want to live any longer. On review of systems otherwise, the patient denies having any recent fevers, cough or congestion, neck pain, chest pain, shortness of breath, abdominal pain, diarrhea, urinary symptoms, or neurologic symptoms. PFSH Past Medical History Narrative Medical The patient's past medical history is significant for pancreatitis, history of myocardial infarction, history of schizophrenia, bipolar disorder, history of obsessive-compulsive disorder, prior history of suicide attempts. Bipolar Disorder: Yes Anxiety: Yes Cardiovascular Problems: Yes Chest Pain: Yes Diminished Hearing: No Inguinal Hernia: Yes (REPAIRED) Medical other: Yes (PANCREATITIS) Respiratory: Yes Myocardial Infarction: Yes Schizophrenia: Yes ?: Not Tubal Ligation: Yes Past Surgical History Narrative Surgical The patient's past surgical history is significant for a tonsillectomy, hernia repair 2. Abdominal Surgery: Yes Tonsillectomy: Yes Other Surgery: Yes (Inguinal herniorrhaphy) Social History Alcohol Use: Yes (OCC) Tobacco Use: Yes (1.5 PPD) Substance Use: No Allergies-Medications (Allergen,Severity, Reaction): Coded Allergies: No Known Allergies (Unverified Allergy, Unknown, 10/28/17) Reported Meds & Prescriptions Reported Meds & Active Scripts Active No Active Prescriptions or Reported Medications Review of Systems Except as stated in HPI: all other systems reviewed are Neg General / Constitutional: No: Fever Eyes: No: Visual changes HENT: No: Headaches Cardiovascular: No: Chest Pain or Discomfort Respiratory: No: Shortness of Breath Gastrointestinal: Positive: Nausea, Vomiting, No: Abdominal Pain Genitourinary: No: Dysuria Musculoskeletal: No: Pain Skin: No Rash Neurologic: No: Weakness, Focal Abnormalities, Change in Mentation, Slurred Speech, Sensory Disturbance Psychiatric: Positive: Depression, Suicidal Ideations, Mood Disorder, No: Homicidal Ideation Endocrine: No: Polydipsia Hematologic/Lymphatic: No: Easy Bruising Physical Exam Narrative General: The patient is a well-developed well-nourished female in no acute medical distress, however she is tearful on examination. Head and Neck exam: Head is normocephalic atraumatic. Eyes: EOMI, pupils are equal round and reactive to light. Nose: Midline septum with pink mucous membranes Mouth: Dentition unremarkable. Moist mucus membranes. Posterior oropharynx is not erythematous. No tonsillar hypertrophy. Uvula midline. Airway patent. Neck: No palpable lymphadenopathy. No nuchal rigidity. No thyromegaly. Cardiovascular: Regular rate and rhythm without murmurs, gallops, or rubs. No pulse deficit to the extremities on simultaneous auscultation and palpation of her radial artery. Lungs: Clear to auscultation bilaterally. No wheezes, rhonchi, or rales. Abdomen: Soft, without tenderness to palpation in all 4 quadrants of the abdomen. No guarding, rebound, or rigidity. Normal bowel sounds are audible. No tenderness on palpation of McBurney's point. Negative Dias sign. Extremities: No clubbing, cyanosis, or edema. 2+ pulses in all 4 extremities. No calf tenderness on palpation. Back: No spinous process tenderness to palpation. No costovertebral angle tenderness to palpation. Neurologic Exam: Grossly nonfocal. Skin Exam: No rash noted. Intact skin that is warm and dry. Data Data Last Documented VS Vital Signs Date Time Temp Pulse Resp B/P (MAP) Pulse Ox O2 Delivery O2 Flow Rate FiO2 01/23/18 03:00 97.8 84 18 110/60 (77) 98 Room Air Orders Orders Electrocardiogram (01/23/18 02:26) Beta Hcg (Quant/Titer) (01/23/18 02:26) Complete Blood Count With Diff (01/23/18 02:26) Comprehensive Metabolic Panel (01/23/18 02:26) Prothrombin Time / Inr (Pt) (01/23/18 02:26) Act Partial Throm Time (Ptt) (01/23/18 02:26) Osmolality,Serum (01/23/18 02:26) Osmolality, Urine (01/23/18 02:26) Urinalysis - C+S If Indicated (01/23/18 02:26) Chest, Single Ap (01/23/18 02:26) Arterial Blood Gas (Abg) (01/23/18 02:26) Iv Access Insert/Monitor (01/23/18 02:26) Ecg Monitoring (01/23/18 02:26) Oximetry (01/23/18 02:26) Sodium Chloride 0.9% Flush (Ns Flush) (01/23/18 02:30) Sodium Chlor 0.9% 1000 Ml Inj (Ns 1000 M (01/23/18 02:26) Call Poison Control (01/23/18 02:26) Drug Screen, Random Urine (01/23/18 02:26) Alcohol (Ethanol) (01/23/18 02:26) Salicylates (Aspirin) (01/23/18 02:26) Tylenol (Acetaminophen) (01/23/18 02:26) Charcoal Activated Liq (Actidose-Aqua Li (01/23/18 02:45) Sodium Chloride 0.9% Flush (Ns Flush) (01/23/18 02:45) Ondansetron Odt (Zofran Odt) (01/23/18 02:45) Admit Order (Ed Use Only) (01/23/18 03:36) Labs Laboratory Tests Test 01/23/18 02:30 01/23/18 02:53 Blood Gas Puncture Site RT RADIAL Blood Gas Patient Temperature 98.6 Blood Gas HCO3 22 mmol/L Blood Gas Base Excess -0.9 mmol/L Blood Gas Oxygen Saturation 90 % Arterial Blood pH 7.46 Arterial Blood Partial Pressure CO2 32 mmHg Arterial Blood Partial Pressure O2 84 mmHG Arterial Blood Oxygen Content 16.3 Vol % Arterial Blood Carboxyhemoglobin 5.9 % Arterial Blood Methemoglobin 0.6 % Blood Gas Hemoglobin 12.8 G/DL Oxygen Delivery Device ROOM AIR Blood Gas Inspired Oxygen 21 % White Blood Count 6.7 TH/MM3 Red Blood Count 4.54 MIL/MM3 Hemoglobin 13.2 GM/DL Hematocrit 39.0 % Mean Corpuscular Volume 86.0 FL Mean Corpuscular Hemoglobin 29.0 PG Mean Corpuscular Hemoglobin Concent 33.7 % Red Cell Distribution Width 14.9 % Platelet Count 276 TH/MM3 Mean Platelet Volume 7.3 FL Neutrophils (%) (Auto) 56.3 % Lymphocytes (%) (Auto) 33.8 % Monocytes (%) (Auto) 7.7 % Eosinophils (%) (Auto) 1.1 % Basophils (%) (Auto) 1.1 % Neutrophils # (Auto) 3.8 TH/MM3 Lymphocytes # (Auto) 2.3 TH/MM3 Monocytes # (Auto) 0.5 TH/MM3 Eosinophils # (Auto) 0.1 TH/MM3 Basophils # (Auto) 0.1 TH/MM3 CBC Comment DIFF FINAL Differential Comment Prothrombin Time 9.8 SEC Prothromb Time International Ratio 1.0 RATIO Activated Partial Thromboplast Time 20.3 SEC Urine Color YELLOW Urine Turbidity HAZY Urine pH 5.5 Urine Specific [place] 1.011 Urine Protein TRACE mg/dL Urine Glucose (UA) NEG mg/dL Urine Ketones NEG mg/dL Urine Occult Blood MOD Urine Nitrite NEG Urine Bilirubin NEG Urine Urobilinogen LESS THAN 2.0 MG/DL Urine Leukocyte Esterase NEG Urine RBC 1 /hpf Urine WBC 4 /hpf Urine Squamous Epithelial Cells 12 /hpf Urine Bacteria RARE /hpf Urine Hyaline Casts 17 /lpf Urine Mucus MANY /lpf Microscopic Urinalysis Comment CULT NOT INDICATED Urine Osmolality 370 MOSM/KG Blood Urea Nitrogen 17 MG/DL Creatinine 0.73 MG/DL Random Glucose 89 MG/DL Total Protein 7.1 GM/DL Albumin 3.0 GM/DL Calcium Level 7.9 MG/DL Alkaline Phosphatase 96 U/L Aspartate Amino Transf (AST/SGOT) 25 U/L Alanine Aminotransferase (ALT/SGPT) 25 U/L Total Bilirubin LESS THAN 0.1 MG/DL Sodium Level 144 MEQ/L Potassium Level 4.1 MEQ/L Chloride Level 113 MEQ/L Carbon Dioxide Level 22.5 MEQ/L Anion Gap 9 MEQ/L Estimat Glomerular Filtration Rate 85 ML/MIN Serum Osmolality 349 MOSM/KG Human Chorionic Gonadotropin, Quant LESS THAN 1 MIU/ML Salicylates Level 33.6 MG/DL Urine Opiates Screen NEG Acetaminophen Level LESS THAN 2.0 MCG/ML Urine Barbiturates Screen NEG Urine Amphetamines Screen NEG Urine Benzodiazepines Screen NEG Urine Cocaine Screen NEG Urine Cannabinoids Screen NEG Ethyl Alcohol Level 210 MG/DL MDM Medical Decision Making Medical Screen Exam Complete: Yes Emergency Medical Condition: Yes Medical Record Reviewed: Yes Differential Diagnosis Aspirin toxicity, versus Tylenol toxicity, versus suicidal gesture Narrative Course During the course of the patient's emergency department visit, the patient's history, examination, and differential diagnosis were reviewed with the patient. The patient was placed on a ekg monitor tech with oximetry and frequent blood pressure monitoring. The patient had IV access obtained and blood work sent for analysis. Poison control will be called regarding this patient's case. Nephrology, Dr. Eduardo was called regarding this patient's case to get him involved in the case early if the patient indeed has aspirin toxicity and requires dialysis. The patient had an EKG done on arrival that shows a sinus rhythm heart rate of 95, QRS duration 89 ms, QTC [address] segment elevation is noted. nonspecific T-wave abnormalities are noted. The patient was placed under a Geronimo act prior to arrival. The patient's Geronimo act was reviewed. The patient was initially provided normal saline 1 L IV fluid bolus. After speaking to poison control, Zofran 4 mg was administered 1 along with a dose of charcoal 50 g p.o. 1. The patient's laboratory and radiologic studies were reviewed and remarkable for CBC that is within normal limits, ABG done shortly after arrival shows a pH of 7.46, PCO2 32, PO2 84, carboxyhemoglobin level is 5.9, bicarb is 22. CMP is remarkable for a chloride of 113, GFR of 85, calcium 7.9, LFTs within normal limits, test is negative. PT 9.8, PTT 20.3. Urine drug screen is negative, acetaminophen less than 2, alcohol level 210, initial aspirin level is 33.6. Urinalysis shows moderate occult blood rare bacteria, culture not indicated. A chest x-ray shows no evidence of acute cardiopulmonary disease. The patient's results were discussed with the patient, including the plan of care. I explained that further testing and/ or monitoring is indicated based on the patient's history, examination, and/ or laboratory findings. Therefore, I recommended admission for additional evaluation. The patient expressed understanding and was agreeable with this plan. The patient was admitted to the hospital in guarded condition and sent to a bed under the care of the muffler hand service. Critical Care Narrative Aggregate critical care time was 35 minutes. Time to perform other separately billable procedures was not included in the critical care time. My time did not include minutes spent treating any other patients simultaneously or on activities that did not directly contribute to the patient's treatment. The services I provided to this patient were to treat and/or prevent clinically significant deterioration that could result in: Seizures, encephalopathy, renal failure, GI bleed, I provided critical care services requiring my management, as noted below: Chart data review, documentation time, medication orders and management, vital sign assessments/reviewing monitor data, ordering and reviewing lab tests, ordering and interpreting/reviewing x-rays and diagnostic studies, care of the patient and discussion of the patient with the admitting physicians. Physician Communication Physician Communication The patient's case including history, pertinent physical examination findings, and laboratory studies were discussed with Dr. Cruz. It was agreed that the patient would be admitted to the muffler hand service. I spoke to Dr. Eduardo at approximately 4:45 AM. The patient's history, physical, examination findings, and laboratory studies were discussed with him. He will see the patient in consultation. Diagnosis Primary Impression: Salicylate intoxication Qualified Codes: T39.092A - Poisoning by salicylates, intentional self-harm, initial encounter Admitting Information Admitting Physician Requests: Admit Scripts No Active Prescriptions or Reported Meds Bette Rubalcava MD January 23, 2018 02:33
[2018-01-23] MEDS ORDERED: ACTIVATED CHARCOAL LIQUID 25 GM/120 ML BTL PO/NG ONE (02:45)
[2018-01-23] MEDS ORDERED: ONDANSETRON ODT 4 MG TAB PO ONE (02:45)
--- NOTE | 2018-01-23 02:46 | RADRPT ---
EXAM DATE: 01/23/2018 2:43 AM EDT AGE/SEX: 47 years / Female INDICATIONS: Possible overdose. CLINICAL DATA: This is the patient's initial encounter. Patient reports that signs and symptoms have been present for 1 day and indicates a pain score of 0/10. MEDICAL/SURGICAL HISTORY: None. None. COMPARISON: No prior [facility] exams available for comparison. FINDINGS: A single AP view of the chest demonstrates the lungs to be symmetrically aerated without evidence of mass, infiltrate or effusion. The cardiomediastinal contours are unremarkable. Osseous structures a re intact. CONCLUSION: No acute cardiopulmonary disease. Electronically signed by: Zachary Stout MD 01/23/2018 2:44 AM EDT
[2018-01-23 03:08] LABS: AUTOMATED NEUTROPHIL # 3.8 TH/MM3 (1.8-7.7); BASOPHIL # 0.1 TH/MM3 (0-0.2); BASOPHIL % 1.1 % (0.0-2.0); EOSINOPHIL # 0.1 TH/MM3 (0-0.4); EOSINOPHIL % 1.1 % (0.0-4.0); HEMOGLOBIN 13.2 GM/DL (11.6-15.3); LYMPH % 33.8 % (9.0-44.0); LYMPHOCYTE # 2.3 TH/MM3 (1.0-4.8); MEAN CORPUSCULAR HGB CONC 33.7 % (32.0-36.0); MEAN PLATELET VOLUME 7.3 FL (7.0-11.0); MONO % 7.7 % (0.0-8.0); MONOCYTE # 0.5 TH/MM3 (0-0.9); NEUT % 56.3 % (16.0-70.0); PLATELET COUNT 276 TH/MM3 (150-450); RED BLOOD COUNT 4.54 MIL/MM3 (4.00-5.30); RED CELL DISTRIBUTION WIDTH 14.9 % (11.6-17.2); WHITE BLOOD COUNT 6.7 TH/MM3 (4.0-11.0)
[2018-01-23 03:13] LABS: BACTERIA, URINE RARE /hpf; BILIRUBIN, URINE NEG (NEG); BLOOD, URINE MOD (NEG); GLUCOSE,URINE NEG (NEG); HYALINE CAST, URINE 17 /lpf (RARE); KETONE, URINE NEG (NEG); MUCUS URINE MANY /lpf (OCC); NITRITE,URINE NEG (NEG); PH, URINE 5.5 (5.0-8.5); SQUAMOUS EPITHELIAL CELL URINE 12 /hpf (0-5); URINE COLOR YELLOW (YELLW/STRAW); URINE LEUKOCYTE ESTERASE NEG (NEG)
[2018-01-23 03:26] LABS: ALT (GPT) 25 U/L (10-53); AST (GOT) 25 U/L (15-37); BICARBONATE 22.5 MEQ/L (21.0-32.0); BLOOD UREA NITROGEN 17 MG/DL (7-18); CALCIUM 7.9 MG/DL (8.5-10.1); CHLORIDE 113 MEQ/L (98-107); CREATININE 0.73 MG/DL (0.50-1.00); GLOMERULAR FILTRATION RATE 85 ML/MIN (>89); GLUCOSE,RANDOM 89 MG/DL (74-106); SODIUM (NA) 144 MEQ/L (136-145)
[2018-01-23 03:28] LABS: PROTHROMBIN TIME - PATIENT 9.8 SEC (9.8-11.6)
[2018-01-23 03:29] LABS: ALKALINE PHOSPHATASE 96 U/L (45-117); TOTAL BILIRUBIN ADULT LESS THAN 0.1 MG/DL (0.2-1.0); TOTAL PROTEIN 7.1 GM/DL (6.4-8.2)
[2018-01-23 03:46] LABS: ACETAMINOPHEN LESS THAN 2.0 MCG/ML (10.0-30.0)
[2018-01-23] MEDS ORDERED: SODIUM CHLOR 0.9% 1000 ML INJ 1,000 ML IV SCH (03:59)
[2018-01-23] MEDS ORDERED: HEPARIN SODIUM - SQ 10,000 UNITS/ML VIAL SQ SCH (04:00)
[2018-01-23] MEDS ORDERED: SENNOSIDES 8.6 MG TAB PO PRN (04:00)
[2018-01-23] MEDS ORDERED: CHLORHEXIDINE GLUCONATE 2 % 1 PACK (2 CLOTHS) TOP PRN (04:00)
[2018-01-23] MEDS ORDERED: BISACODYL 10 MG SUPP RECTAL PRN (04:00)
[2018-01-23] MEDS ORDERED: MAGNESIUM HYDROXIDE SUSP 30 ML CUP PO PRN (04:00)
[2018-01-23] MEDS ORDERED: SODIUM CHLORIDE 0.9% FLUSH 10 ML FLUSH IV FLUSH PRN (04:00)
[2018-01-23] MEDS ORDERED: RESP: ALBUTEROL 2.5 MG/IPRATROPIUM 0.5 MG NEB (PRN) INH (04:00)
[2018-01-23] MEDS ORDERED: NURSING INFORMATION XX SCH (04:00)
[2018-01-23] MEDS ORDERED: LACTULOSE SYRUP 20 GM/30 ML CUP PO PRN (04:00)
[2018-01-23] MEDS ORDERED: CHLORHEXIDINE GLUCONATE 2 % 1 PACK (2 CLOTHS) TOP SCH (04:00)
[2018-01-23] MEDS ORDERED: ONDANSETRON HCL 4 MG/2 ML VIAL IV PUSH PRN (04:00)
--- NOTE | 2018-01-23 04:06 | HHI.HP ---
HPI Service Critical Care Medicine Primary Care Physician No Primary Care Physician Admission Diagnosis Aspirin overdose Diagnosis: Travel History International Travel<30 Days: No Contact w/Intl Traveler <30 Da: No Traveled to Known Affected Are: No History of Present Illness 47 year old female with a long-standing history of bipolar disorder, schizophrenia, and OCD presents due to intentionally overdosing on aspirin prior to arrival. The patient bought a bottle of aspirin at a local store at approximately 11 PM and shortly thereafter she took a handful of the aspirin tablets. She reports that she then had nausea vomiting 1. She thought that she may be vomiting the aspirin related to not eating. She then ate a meal and intermittently since then over the next 2 hours was ingesting handfuls of aspirin. The bottle brought in by the patient's EMS crew has 120 tablets missing. The aspirin tablet is a 325 mg tablet. The patient reports that she has vomited again 1. The emesis was able to be viewed by ambulance services and contained pill fragments. The patient supposed to be on the psychiatric medications however she is not taking anything due to poor financial situation. The case was discussed by ED attending with Poison Control Center who recommended charcoal administration, and consult nephrology for possible if needed HD. Review of Systems Constitutional: DENIES: Diaphoretic episodes, Fatigue, Fever, Weight gain, Weight loss, Chills, Dizziness, Change in appetite, Night Sweats Endocrine: DENIES: Abnorml menstrual pattern, Heat/cold intolerance, Polydipsia , Polyuria, Polyphagia Eyes: DENIES: Blurred vision, Diplopia, Eye inflammation, Eye pain, Vision loss , Photosensitivity, Double Vision Ears, nose, mouth, throat: DENIES: Tinnitus, Hearing loss, Vertigo, Nasal discharge, Oral lesions, Throat pain, Hoarseness, Ear Pain, Running Nose, Epistaxis, Sinus Pain, Toothache, Odynophagia Respiratory: DENIES: Apneas, Cough, Snoring, Wheezing, Hemoptysis, Sputum production, Shortness of breath Cardiovascular: DENIES: Chest pain, Palpitations, Syncope, Dyspnea on Exertion , PND, Lower Extremity Edema, Orthopnea, Claudication Gastrointestinal: COMPLAINS OF: Nausea, Vomiting, Anorexia, DENIES: Abdominal pain, Black stools, Bloody stools, Constipation, Diarrhea, Difficulty Swallowing Genitourinary: DENIES: Abnormal vaginal bleeding, Dysmenorrhea, Dyspareunia, Sexual dysfunction, Urinary frequency, Urinary incontinence, Urgency, Hematuria , Dysuria, Nocturia, Vaginal discharge Musculoskeletal: DENIES: Joint pain, Muscle aches, Stiffness, Joint Swelling, Back pain, Neck pain Integumentary: DENIES: Abnormal pigmentation, Pruritus, Rash, Nail changes, Breast masses, Breast skin changes, Nipple discharge Hematologic/lymphatic: DENIES: Bruising, Lymphadenopathy Immunologic/allergic: DENIES: Eczema, Urticaria Neurologic: DENIES: Abnormal gait, Headache, Localized weakness, Paresthesias, Seizures, Speech Problems, Tremor, Poor Balance Psychiatric: COMPLAINS OF: Depression, Suicidal Ideation, DENIES: Anxiety, Confusion, Mood changes, Hallucinations, Agitation, Homicidal Ideation, Delusions Past Family Social History Allergies: Coded Allergies: No Known Allergies (Unverified Allergy, Unknown, 10/28/17) Past Medical History Depression Pleurisy Past Surgical History None Reported Medications Reported Meds & Active Scripts Active No Active Prescriptions or Reported Medications Active Ordered Medications Current Medications Medications (Trade) Dose Ordered Sig/Vel Route PRN Reason Start Time Stop Time Status Last Admin Dose Admin Sodium Chloride (NS Flush) 2 ml UNSCH PRN IVF FLUSH AFTER USING IV ACCESS 01/23/18 02:30 Sodium Chloride (NS Flush) 2 ml UNSCH PRN IVF FLUSH AFTER USING IV ACCESS 01/23/18 02:45 Family History Father of heart attack at age of 69 Social History Current smoker, no drugs or alcohol abuse Physical Exam Vital Signs Vital Signs Date Time Temp Pulse Resp B/P (MAP) Pulse Ox O2 Delivery O2 Flow Rate FiO2 01/23/18 02:37 98 Room Air 01/23/18 02:26 98.1 87 16 124/77 (93) 97 Room Air Physical Exam GENERAL: Well-nourished, well-developed patient. SKIN: Warm and dry. HEAD: Normocephalic. EYES: No scleral icterus. No injection or drainage. NECK: Supple, trachea midline. No JVD or lymphadenopathy. CARDIOVASCULAR: Regular rate and rhythm without murmurs, gallops, or rubs. RESPIRATORY: Breath sounds equal bilaterally. No accessory muscle use. GASTROINTESTINAL: Abdomen soft, non-tender, nondistended. MUSCULOSKELETAL: No cyanosis, or edema. BACK: Nontender without obvious deformity. NEURO EXAM: GCS: 15 Mental Status: The patient is alert and oriented to person, place, and time with normal speech. Laboratory Laboratory Tests Test 01/23/18 02:30 01/23/18 02:53 Blood Gas Puncture Site RT RADIAL Blood Gas Patient Temperature 98.6 Blood Gas HCO3 22 Blood Gas Base Excess -0.9 Blood Gas Oxygen Saturation 90 Arterial Blood pH 7.46 Arterial Blood Partial Pressure CO2 32 Arterial Blood Partial Pressure O2 84 Arterial Blood Oxygen Content 16.3 Arterial Blood Carboxyhemoglobin 5.9 Arterial Blood Methemoglobin 0.6 Blood Gas Hemoglobin 12.8 Oxygen Delivery Device ROOM AIR Blood Gas Inspired Oxygen 21 White Blood Count 6.7 Red Blood Count 4.54 Hemoglobin 13.2 Hematocrit 39.0 Mean Corpuscular Volume 86.0 Mean Corpuscular Hemoglobin 29.0 Mean Corpuscular Hemoglobin Concent 33.7 Red Cell Distribution Width 14.9 Platelet Count 276 Mean Platelet Volume 7.3 Neutrophils (%) (Auto) 56.3 Lymphocytes (%) (Auto) 33.8 Monocytes (%) (Auto) 7.7 Eosinophils (%) (Auto) 1.1 Basophils (%) (Auto) 1.1 Neutrophils # (Auto) 3.8 Lymphocytes # (Auto) 2.3 Monocytes # (Auto) 0.5 Eosinophils # (Auto) 0.1 Basophils # (Auto) 0.1 CBC Comment DIFF FINAL Differential Comment Prothrombin Time 9.8 Prothromb Time International Ratio 1.0 Activated Partial Thromboplast Time 20.3 Urine Color YELLOW Urine Turbidity HAZY Urine pH 5.5 Urine Specific [place] 1.011 Urine Protein TRACE Urine Glucose (UA) NEG Urine Ketones NEG Urine Occult Blood MOD Urine Nitrite NEG Urine Bilirubin NEG Urine Urobilinogen LESS THAN 2.0 Urine Leukocyte Esterase NEG Urine RBC 1 Urine WBC 4 Urine Squamous Epithelial Cells 12 Urine Bacteria RARE Urine Hyaline Casts 17 Urine Mucus MANY Microscopic Urinalysis Comment CULT NOT INDICATED Urine Osmolality 370 Blood Urea Nitrogen 17 Creatinine 0.73 Random Glucose 89 Total Protein 7.1 Albumin 3.0 Calcium Level 7.9 Alkaline Phosphatase 96 Aspartate Amino Transf (AST/SGOT) 25 Alanine Aminotransferase (ALT/SGPT) 25 Total Bilirubin LESS THAN 0.1 Sodium Level 144 Potassium Level 4.1 Chloride Level 113 Carbon Dioxide Level 22.5 Anion Gap 9 Estimat Glomerular Filtration Rate 85 Serum Osmolality 349 Human Chorionic Gonadotropin, Quant LESS THAN 1 Salicylates Level 33.6 Urine Opiates Screen NEG Acetaminophen Level LESS THAN 2.0 Urine Barbiturates Screen NEG Urine Amphetamines Screen NEG Urine Benzodiazepines Screen NEG Urine Cocaine Screen NEG Urine Cannabinoids Screen NEG Ethyl Alcohol Level 210 Result Diagram: 01/23/18 0253 01/23/18 025 Imaging Last 24 hours Impressions Chest X-Ray 01/23/18 0226 Signed Impressions: CONCLUSION: Caprini VTE Risk Assessment Caprini VTE Risk Assessment: Mod/High Risk (score >= 2) Caprini Risk Assessment Model Point Value = 1 Point Value = 2 Point Value = 3 Point Value = 5 Age 41-60 Minor surgery BMI > 25 kg/m2 Swollen legs Varicose veins or History of unexplained or recurrent spontaneous Oral contraceptives or hormone replacement Sepsis (< 1 month) Serious lung disease, including pneumonia (< 1 month) Abnormal pulmonary function Acute myocardial infarction Congestive heart failure (< 1 month) History of inflammatory bowel disease Medical patient at bed rest Age 61-74 Arthroscopic surgery Major open surgery (> 45 min) Laparoscopic surgery (> 45 min) Malignancy Confined to bed (> 72 hours) Immobilizing plaster cast Central venous access Age >= 75 History of VTE Family history of VTE Factor V Leiden Prothrombin [id number] Lupus anticoagulant Anticardiolipin antibodies Elevated serum homocysteine Heparin-induced thrombocytopenia Other congenital or acquired thrombophilia Stroke (< 1 month) Elective arthroplasty Hip, pelvis, or leg fracture Acute spinal cord injury (< 1 month) Prophylaxis Regimen Total Risk Factor Score Risk Level Prophylaxis Regimen 0-1 Low Early ambulation 2 Moderate Order ONE of the following: *Sequential Compression Device (SCD) *Heparin 5000 units SQ BID 3-4 Higher Order ONE of the following medications: *Heparin 5000 units SQ TID *Enoxaparin/Lovenox 40 mg SQ daily (WT < 150 kg, CrCl > 30 mL/min) *Enoxaparin/Lovenox 30 mg SQ daily (WT < 150 kg, CrCl > 10-29 mL/min) *Enoxaparin/Lovenox 30 mg SQ BID (WT < 150 kg, CrCl > 30 mL/min) AND/OR *Sequential Compression Device (SCD) 5 or more Highest Order ONE of the following medications: *Heparin 5000 units SQ TID (Preferred with Epidurals) *Enoxaparin/Lovenox 40 mg SQ daily (WT < 150 kg, CrCl > 30 mL/min) *Enoxaparin/Lovenox 30 mg SQ daily (WT < 150 kg, CrCl > 10-29 mL/min) *Enoxaparin/Lovenox 30 mg SQ BID (WT < 150 kg, CrCl > 30 mL/min) AND *Sequential Compression Device (SCD) Assessment and Plan Assessment and Plan Aspirin overdose -Charcoal administered in the ED -Continue charcoal every 2 hours 3 doses -IV fluid hydration -Alkalinization of urine with sodium bicarbonate -Poison control center appreciated -Monitor labs frequently -Nephrology consultation for possible dialysis if needed -Salicylate level every 2 hours until observed to trend down -Frequent CMP Depression -With suicidal ideation -Psychiatry evaluation DVT GI prophylaxis -Hadley's and SCDs -Subcu heparin -Pepcid Critical Care: The total critical care time was 35 minutes. Time to perform other separately billable procedures was not included in the critical care time. Roland Cruz MD January 23, 2018 4:06 am
[2018-01-23] MEDS ORDERED: ACTIVATED CHARCOAL LIQUID 25 GM/120 ML BTL PO SCH (04:45)
[2018-01-23 07:07] LABS: ALBUMIN 2.7 GM/DL (3.4-5.0); BICARBONATE 24.6 MEQ/L (21.0-32.0); CALCIUM 7.2 MG/DL (8.5-10.1); CALCIUM-PROTEIN CORRECTED 7.6 MG/DL (8.5-10.1); CREATININE 0.67 MG/DL (0.50-1.00); TOTAL BILIRUBIN ADULT 0.1 MG/DL (0.2-1.0); TOTAL PROTEIN 6.3 GM/DL (6.4-8.2)
--- NOTE | 2018-01-23 07:25 | PD.CONS ---
HPI Service Nephrology Consult Requested By Dr. Cruz Reason for Consult Salicylate overdose Primary Care Physician No Primary Care Physician History of Present Illness Patient is a 47-year-old white female with history of bipolar disorder who was feeling depressed, she is not taking her medications and try to commit suicide by overdosing on salicylate, according to the chart she took a handful of pills initially and had nausea and vomiting, she then ate and later on took a bunch of pills, EMS reported that she vomited again and reported seeing pieces of pills in the vomitus, patient last salicylate level is 33.6, she is awake and alert asking for water, she admits up attempting to end her life taking bunch of aspirin pills 325 mg, EMS reported an empty bottle of 120 tablets of aspirin 325 mg. She also admits of drinking vodka last night. Review of Systems Constitutional: COMPLAINS OF: Fatigue Endocrine: DENIES: Abnorml menstrual pattern, Heat/cold intolerance, Polydipsia , Polyuria, Polyphagia Eyes: DENIES: Blurred vision, Diplopia, Eye inflammation, Eye pain, Vision loss , Photosensitivity, Double Vision Ears, nose, mouth, throat: DENIES: Tinnitus, Hearing loss, Vertigo, Nasal discharge, Oral lesions, Throat pain, Hoarseness, Ear Pain, Running Nose, Epistaxis, Sinus Pain, Toothache, Odynophagia Respiratory: DENIES: Apneas, Cough, Snoring, Wheezing, Hemoptysis, Sputum production, Shortness of breath Cardiovascular: DENIES: Chest pain, Palpitations, Syncope, Dyspnea on Exertion , PND, Lower Extremity Edema, Orthopnea, Claudication Gastrointestinal: COMPLAINS OF: Nausea, Vomiting, DENIES: Abdominal pain, Black stools, Bloody stools, Constipation, Diarrhea, Difficulty Swallowing, Anorexia Genitourinary: DENIES: Abnormal vaginal bleeding, Dysmenorrhea, Dyspareunia, Sexual dysfunction, Urinary frequency, Urinary incontinence, Urgency, Hematuria , Dysuria, Nocturia, Vaginal discharge Musculoskeletal: DENIES: Joint pain, Muscle aches, Stiffness, Joint Swelling, Back pain, Neck pain Integumentary: DENIES: Abnormal pigmentation, Pruritus, Rash, Nail changes, Breast masses, Breast skin changes, Nipple discharge Hematologic/lymphatic: DENIES: Bruising, Lymphadenopathy Immunologic/allergic: DENIES: Eczema, Urticaria Neurologic: DENIES: Abnormal gait, Headache, Localized weakness, Paresthesias, Seizures, Speech Problems, Tremor, Poor Balance Psychiatric: COMPLAINS OF: Anxiety, Mood changes, Depression Past Family Social History Allergies: Coded Allergies: No Known Allergies (Unverified Allergy, Unknown, 10/28/17) Past Medical History Bipolar disorder History of pancreatitis Alcoholism Previous pleurisy Past Surgical History Tonsillectomy Hernia repairs 2 Reported Medications Reported Meds & Active Scripts Active No Active Prescriptions or Reported Medications Active Ordered Medications Current Medications Medications (Trade) Dose Ordered Sig/Vel Route Start Time Stop Time Status Last Admin (NS Flush) 2 ml UNSCH PRN IV FLUSH 01/23/18 04:00 (NS Flush) 2 ml BID IV FLUSH 01/23/18 09:00 (Pepcid Inj) 20 mg Q12HR IV PUSH 01/23/18 09:00 (Zofran Inj) 4 mg Q6H PRN IV PUSH 01/23/18 04:00 01/23/18 05:42 (Duoneb Neb) 1 ampule Q2HR NEB PRN INH 01/23/18 04:00 ([facility] [place] Nursing Information) 1 Q361D XX 01/23/18 04:00 (Chlorhexidine 2% Cloth) 3 pack Taper DAILY@04 TOP 01/23/18 04:00 01/19/19 03:59 (Chlorhexidine 2% Cloth) 3 pack UNSCH PRN TOP 01/23/18 04:00 (Ary-Colace) 1 tab BID PO 01/23/18 09:00 (Milk Of Magnesia Liq) 30 ml Q12H PRN PO 01/23/18 04:00 (Senokot) 17.2 mg Q12H PRN PO 01/23/18 04:00 (Dulcolax Supp) 10 mg DAILY PRN RECTAL 01/23/18 04:00 (Lactulose Liq) 30 ml DAILY PRN PO 01/23/18 04:00 (Heparin Inj) 5,000 units Q8HR SQ 01/23/18 06:00 Sodium Bicarbonate 150 meq/Dextrose 1,150 ml @ 100 mls/hr [id number] IV 01/23/18 04:45 (Actidose-Aqua Liq) 25 gm Q2H PO 01/23/18 04:45 01/23/18 08:46 Family History Noncontributory Social History Smokes cigarettes one half pack per day Alcohol use/binge drinking Physical Exam Vital Signs Vital Signs Date Time Temp Pulse Resp B/P (MAP) Pulse Ox O2 Delivery O2 Flow Rate FiO2 01/23/18 05:28 97.8 83 18 112/73 (86) 98 01/23/18 04:43 01/23/18 04:30 98 01/23/18 03:00 97.8 84 18 110/60 (77) 98 Room Air 01/23/18 02:37 98 Room Air 01/23/18 02:26 98.1 87 16 124/77 (93) 97 Room Air Physical Exam GENERAL: Well-nourished, well-developed patient. SKIN: Warm and dry. HEAD: Normocephalic. EYES: No scleral icterus. No injection or drainage. NECK: Supple, trachea midline. No JVD or lymphadenopathy. CARDIOVASCULAR: Regular rate and rhythm without murmurs, gallops, or rubs. RESPIRATORY: Breath sounds equal bilaterally. No accessory muscle use. GASTROINTESTINAL: Abdomen soft, non-tender, nondistended. EXTREMITIES: No cyanosis, or edema. NEUROLOGICAL: Awake, alert, and oriented x 3. Non-focal. Laboratory Laboratory Tests Test 01/23/18 02:30 01/23/18 02:53 01/23/18 04:45 01/23/18 06:13 Blood Gas Puncture Site RT RADIAL Blood Gas Patient Temperature 98.6 Blood Gas HCO3 22 Blood Gas Base Excess -0.9 Blood Gas Oxygen Saturation 90 Arterial Blood pH 7.46 Arterial Blood Partial Pressure CO2 32 Arterial Blood Partial Pressure O2 84 Arterial Blood Oxygen Content 16.3 Arterial Blood Carboxyhemoglobin 5.9 Arterial Blood Methemoglobin 0.6 Blood Gas Hemoglobin 12.8 Oxygen Delivery Device ROOM AIR Blood Gas Inspired Oxygen 21 White Blood Count 6.7 Red Blood Count 4.54 Hemoglobin 13.2 Hematocrit 39.0 Mean Corpuscular Volume 86.0 Mean Corpuscular Hemoglobin 29.0 Mean Corpuscular Hemoglobin Concent 33.7 Red Cell Distribution Width 14.9 Platelet Count 276 Mean Platelet Volume 7.3 Neutrophils (%) (Auto) 56.3 Lymphocytes (%) (Auto) 33.8 Monocytes (%) (Auto) 7.7 Eosinophils (%) (Auto) 1.1 Basophils (%) (Auto) 1.1 Neutrophils # (Auto) 3.8 Lymphocytes # (Auto) 2.3 Monocytes # (Auto) 0.5 Eosinophils # (Auto) 0.1 Basophils # (Auto) 0.1 CBC Comment DIFF FINAL Differential Comment Prothrombin Time 9.8 Prothromb Time International Ratio 1.0 Activated Partial Thromboplast Time 20.3 Urine Color YELLOW Urine Turbidity HAZY Urine pH 5.5 Urine Specific [place] 1.011 Urine Protein TRACE Urine Glucose (UA) NEG Urine Ketones NEG Urine Occult Blood MOD Urine Nitrite NEG Urine Bilirubin NEG Urine Urobilinogen LESS THAN 2.0 Urine Leukocyte Esterase NEG Urine RBC 1 Urine WBC 4 Urine Squamous Epithelial Cells 12 Urine Bacteria RARE Urine Hyaline Casts 17 Urine Mucus MANY Microscopic Urinalysis Comment CULT NOT INDICATED Urine Osmolality 370 Blood Urea Nitrogen 17 Creatinine 0.73 Random Glucose 89 Total Protein 7.1 Albumin 3.0 Calcium Level 7.9 Alkaline Phosphatase 96 Aspartate Amino Transf (AST/SGOT) 25 Alanine Aminotransferase (ALT/SGPT) 25 Total Bilirubin LESS THAN 0.1 Sodium Level 144 Potassium Level 4.1 Chloride Level 113 Carbon Dioxide Level 22.5 Anion Gap 9 Estimat Glomerular Filtration Rate 85 Serum Osmolality 349 Human Chorionic Gonadotropin, Quant LESS THAN 1 Salicylates Level 33.6 28.7 Urine Opiates Screen NEG Acetaminophen Level LESS THAN 2.0 Urine Barbiturates Screen NEG Urine Amphetamines Screen NEG Urine Benzodiazepines Screen NEG Urine Cocaine Screen NEG Urine Cannabinoids Screen NEG Ethyl Alcohol Level 210 Result Diagram: 01/23/18 0253 01/23/18 025 Imaging Last Impressions Chest X-Ray 01/23/186 Signed Impressions: CONCLUSION: No acute cardiopulmonary disease. Assessment and Plan Problem List: (1) Salicylate intoxication ICD Codes: T39.091A - Poisoning by salicylates, accidental (unintentional), initial encounter Status: Acute Plan: Patient appears to be stable and do not exhibit signs and symptoms associated with critically toxic levels of salicylate She responded to conservative measures She vomited couple of times in this may have saved her from absorbing large quantity of salicylate At this point follow salicylate levels, agree with bicarbonate and IV hydration There is no acute indication of hemodialysis at the level of 33.6. But for some reason she has levels which are rising and is more symptomatic then we may reconsider doing hemodialysis. Will follow PRN bases (2) Suicidal behavior with attempted self-injury ICD Codes: T14.91XA - Suicide attempt, initial encounter Plan: Consult psychiatry (3) Bipolar 1 disorder, depressed ICD Codes: F31.9 - Bipolar disorder, unspecified Plan: Patient is depressed (4) Acute respiratory alkalosis ICD Codes: E87.3 - Alkalosis Plan: Due to salicylate overdose Problem Qualifiers (1) Salicylate intoxication: Cassy Eduardo MD January 23, 2018 07:25
[2018-01-23] MEDS: DOCUSATE SODIUM 50 MG/SENNA 8.6 MG TAB PO SCH ×2 (09:00→20:35)
[2018-01-23] MEDS: SODIUM CHLORIDE 0.9% FLUSH 10 ML FLUSH IV FLUSH SCH ×2 (09:43→20:35)
[2018-01-23] MEDS: FAMOTIDINE 20 MG/2 ML VIAL IV PUSH SCH ×2 (09:44→20:35)
[2018-01-23] MEDS: HEPARIN SODIUM - SQ 10,000 UNITS/ML VIAL SQ SCH ×3 (09:44→20:35)
[2018-01-23 10:33] LABS: ALBUMIN 2.7 GM/DL (3.4-5.0); AST (GOT) 21 U/L (15-37); BICARBONATE 21.9 MEQ/L (21.0-32.0); BLOOD UREA NITROGEN 14 MG/DL (7-18); CALCIUM 7.5 MG/DL (8.5-10.1); CHLORIDE 115 MEQ/L (98-107); CREATININE 0.72 MG/DL (0.50-1.00); GLOMERULAR FILTRATION RATE 87 ML/MIN (>89); GLUCOSE,RANDOM 79 MG/DL (74-106); SODIUM (NA) 146 MEQ/L (136-145)
[2018-01-23 10:35] LABS: ALT (GPT) 22 U/L (10-53)
[2018-01-23 10:37] LABS: ALKALINE PHOSPHATASE 84 U/L (45-117); TOTAL BILIRUBIN ADULT 0.2 MG/DL (0.2-1.0); TOTAL PROTEIN 6.3 GM/DL (6.4-8.2)
--- NOTE | 2018-01-23 11:50 | PD.PSY.CON ---
Provisional Diagnosis Admission Date January 23, 2018 at 03:39 [facility] I. 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 Deferred [facility] III. Aspirin overdose [facility] IV. Multiple suicidal attempts in the past, persistent alcohol use disorder, conflicts with [facility] V. 45 History of Present Illness Service Psychiatry Consult Requested By Critical care team Reason for Consult Overdosed with SI Primary Care Physician No Primary Care Physician HPI The patient is a 47-year-old woman, domiciled in a motel with her , employed in the same motel, she is , she has 9 kids, with psychiatric history of bipolar disorder, anxiety, OCD, alcohol use disorder, multiple psychiatric admissions, multiple suicidal attempts, she is not a medication, she was seen in od by Liza Mayer under geronimo act last January 12, 2018 due to a suicidal attempt, the Geronimo act was lifted, who presents due to intentionally overdosing on aspirin prior to arrival. The patient bought a bottle of aspirin at a local store at approximately 11 PM and shortly thereafter she took a handful of the aspirin tablets. She reports that she then had nausea vomiting 1. She thought that she may be vomiting the aspirin related to not eating. She then ate a meal and intermittently since then over the next 2 hours was ingesting handfuls of aspirin. The bottle brought in by the patient's EMS crew has 120 tablets missing. The aspirin tablet is a 325 mg tablet. The patient reports that she has vomited again 1. The emesis was able to be viewed by ambulance services and contained pill fragments. The patient supposed to be on the psychiatric medications however she is not taking anything due to poor financial situation. The case was discussed by ED attending with [facility] who recommended charcoal administration, and consult nephrology for possible if needed HD. Patient was consulted to psychiatry to address and explore her overdose. EMR was reviewed. The case was discussed with nurse in charge. On psychiatric evaluation I find a patient that is calm, cooperative, seems to be emotionally distressed. The patient reports that she tried to commit suicide because she is tired of life. The patient reported that she has been quite depressed for a long time now, she has been combating her depression with alcohol unable to take medications "due to lack of insurance and resources". The patient says that "I am just sick of everything and I wanted to end all". 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 The patient reports feeling quite overwhelmed, frustrated, with increased sense of hopelessness, helplessness, worthlessness, increased alcohol use, mood swings, feeling with poor energy, poor appetite, sleeping poorly, and persistent suicidal thoughts with a plan of overdosing. Yesterday, she says," I was just ready to ". On the evaluation the patient is tearful at times. Looks objectively depressed. The patient is oriented 3, no filtration of consciousness, no attention deficit present. She denies the use of illegal drugs, reports daily use of alcohol. Review of Systems Constitutional: DENIES: Diaphoretic episodes, Fatigue, Fever, Weight gain, Weight loss, Chills, Dizziness, Change in appetite, Night Sweats Endocrine: DENIES: Abnorml menstrual pattern, Heat/cold intolerance, Polydipsia , Polyuria, Polyphagia Eyes: DENIES: Blurred vision, Diplopia, Eye inflammation, Eye pain, Vision loss , Photosensitivity, Double Vision Ears, nose, mouth, throat: DENIES: Tinnitus, Hearing loss, Vertigo, Nasal discharge, Oral lesions, Throat pain, Hoarseness, Ear Pain, Running Nose, Epistaxis, Sinus Pain, Toothache, Odynophagia Respiratory: DENIES: Apneas, Cough, Snoring, Wheezing, Hemoptysis, Sputum production, Shortness of breath Cardiovascular: DENIES: Chest pain, Palpitations, Syncope, Dyspnea on Exertion , PND, Lower Extremity Edema, Orthopnea, Claudication Gastrointestinal: DENIES: Abdominal pain, Black stools, Bloody stools, Constipation, Diarrhea, Nausea, Vomiting, Difficulty Swallowing, Anorexia Genitourinary: DENIES: Abnormal vaginal bleeding, Dysmenorrhea, Dyspareunia, Sexual dysfunction, Urinary frequency, Urinary incontinence, Urgency, Hematuria , Dysuria, Nocturia, Vaginal discharge Musculoskeletal: DENIES: Joint pain, Muscle aches, Stiffness, Joint Swelling, Back pain, Neck pain Integumentary: DENIES: Abnormal pigmentation, Pruritus, Rash, Nail changes, Breast masses, Breast skin changes, Nipple discharge Hematologic/lymphatic: DENIES: Bruising, Lymphadenopathy Immunologic/allergic: DENIES: Eczema, Urticaria Neurologic: DENIES: Abnormal gait, Headache, Localized weakness, Paresthesias, Seizures, Speech Problems, Tremor, Poor Balance Psychiatric: COMPLAINS OF: Anxiety, Depression, Suicidal Ideation Past Family Social History Coded Allergies: No Known Allergies (Unverified Allergy, Unknown, 10/28/17) Discontinued Scripts Promethazine (Phenergan) 25 Mg Tablet, 25 MG PO Q6H Y for NAUSEA OR VOMITING, # 10 TAB 0 Refills Prov:Hanh Carrizales [employer] 10/28/17 Cephalexin (Keflex) 500 Mg Cap, 500 MG PO Q12H for Infection, #14 CAP 0 Refills Prov:Hanh Carrizales 10/28/17 Current Medications Medications (Trade) Dose Ordered Sig/Vel Route Start Time Stop Time Status Last Admin (NS Flush) 2 ml UNSCH PRN IV FLUSH 01/23/18 04:00 (NS Flush) 2 ml BID IV FLUSH 01/23/18 09:00 01/23/18 09:43 (Pepcid Inj) 20 mg Q12HR IV PUSH 01/23/18 09:00 01/23/18 09:44 (Zofran Inj) 4 mg Q6H PRN IV PUSH 01/23/18 04:00 01/23/18 05:42 (Duoneb Neb) 1 ampule Q2HR NEB PRN INH 01/23/18 04:00 ([facility] Nursing Information) 1 Q361D XX 01/23/18 04:00 (Chlorhexidine 2% Cloth) 3 pack Taper DAILY@04 TOP 01/23/18 04:00 01/19/19 03:59 (Chlorhexidine 2% Cloth) 3 pack UNSCH PRN TOP 01/23/18 04:00 (Ary-Colace) 1 tab BID PO 01/23/18 09:00 (Milk Of Magnesia Liq) 30 ml Q12H PRN PO 01/23/18 04:00 (Senokot) 17.2 mg Q12H PRN PO 01/23/18 04:00 (Dulcolax Supp) 10 mg DAILY PRN RECTAL 01/23/18 04:00 (Lactulose Liq) 30 ml DAILY PRN PO 01/23/18 04:00 (Heparin Inj) 5,000 units Q8HR SQ 01/23/18 06:00 01/23/18 09:44 Sodium Bicarbonate 150 meq/Dextrose 1,150 ml @ 100 mls/hr [id number] IV 01/23/18 04:45 Family Psych History Her father and her mother have bipolar disorder Social History Patient was born and raised in [place], she lives in a motel in [facility], employed in the same motel, she has 9 kids, she is , her highest level of education is some college Patient's Strengths (min. 2) Verbal communication Physical Exam Patient has no tremors, no EPS, she does present some level of psychomotor retardation, but no withdrawal symptom Vital Signs Vital Signs Date Time Temp Pulse Resp B/P (MAP) Pulse Ox O2 Delivery O2 Flow Rate FiO2 01/23/18 10:00 65 01/23/18 09:00 98.0 20 113/65 (81) 97 01/23/18 03:00 Room Air I/O 01/23/18 01/23/18 01/24/18 08:00 16:00 00:00 Intake Total 1000 ml Output Total 300 ml Balance 700 ml Lab Results Test 01/23/18 02:30 01/23/18 02:53 01/23/18 04:45 01/23/18 06:13 Blood Gas Puncture Site RT RADIAL Blood Gas Patient Temperature 98.6 Blood Gas HCO3 22 mmol/L Blood Gas Base Excess -0.9 mmol/L Blood Gas Oxygen Saturation 90 % Arterial Blood pH 7.46 Arterial Blood Partial Pressure CO2 32 mmHg Arterial Blood Partial Pressure O2 84 mmHG Arterial Blood Oxygen Content 16.3 Vol % Arterial Blood Carboxyhemoglobin 5.9 % Arterial Blood Methemoglobin 0.6 % Blood Gas Hemoglobin 12.8 G/DL Oxygen Delivery Device ROOM AIR Blood Gas Inspired Oxygen 21 % White Blood Count 6.7 TH/MM3 Red Blood Count 4.54 MIL/MM3 Hemoglobin 13.2 GM/DL Hematocrit 39.0 % Mean Corpuscular Volume 86.0 FL Mean Corpuscular Hemoglobin 29.0 PG Mean Corpuscular Hemoglobin Concent 33.7 % Red Cell Distribution Width 14.9 % Platelet Count 276 TH/MM3 Mean Platelet Volume 7.3 FL Neutrophils (%) (Auto) 56.3 % Lymphocytes (%) (Auto) 33.8 % Monocytes (%) (Auto) 7.7 % Eosinophils (%) (Auto) 1.1 % Basophils (%) (Auto) 1.1 % Neutrophils # (Auto) 3.8 TH/MM3 Lymphocytes # (Auto) 2.3 TH/MM3 Monocytes # (Auto) 0.5 TH/MM3 Eosinophils # (Auto) 0.1 TH/MM3 Basophils # (Auto) 0.1 TH/MM3 CBC Comment DIFF FINAL Differential Comment Prothrombin Time 9.8 SEC Prothromb Time International Ratio 1.0 RATIO Activated Partial Thromboplast Time 20.3 SEC Urine Color YELLOW Urine Turbidity HAZY Urine pH 5.5 Urine Specific [place] 1.011 Urine Protein TRACE mg/dL Urine Glucose (UA) NEG mg/dL Urine Ketones NEG mg/dL Urine Occult Blood MOD Urine Nitrite NEG Urine Bilirubin NEG Urine Urobilinogen LESS THAN 2.0 MG/DL Urine Leukocyte Esterase NEG Urine RBC 1 /hpf Urine WBC 4 /hpf Urine Squamous Epithelial Cells 12 /hpf Urine Bacteria RARE /hpf Urine Hyaline Casts 17 /lpf Urine Mucus MANY /lpf Microscopic Urinalysis Comment CULT NOT INDICATED Urine Osmolality 370 MOSM/KG Blood Urea Nitrogen 17 MG/DL 15 MG/DL Creatinine 0.73 MG/DL 0.67 MG/DL Random Glucose 89 MG/DL 87 MG/DL Total Protein 7.1 GM/DL 6.3 GM/DL Albumin 3.0 GM/DL 2.7 GM/DL Calcium Level 7.9 MG/DL 7.2 MG/DL Alkaline Phosphatase 96 U/L 84 U/L Aspartate Amino Transf (AST/SGOT) 25 U/L 21 U/L Alanine Aminotransferase (ALT/SGPT) 25 U/L 24 U/L Total Bilirubin LESS THAN 0.1 MG/DL 0.1 MG/DL Sodium Level 144 MEQ/L 145 MEQ/L Potassium Level 4.1 MEQ/L 3.8 MEQ/L Chloride Level 113 MEQ/L 113 MEQ/L Carbon Dioxide Level 22.5 MEQ/L 24.6 MEQ/L Anion Gap 9 MEQ/L 7 MEQ/L Estimat Glomerular Filtration Rate 85 ML/MIN 94 ML/MIN Serum Osmolality 349 MOSM/KG Human Chorionic Gonadotropin, Quant LESS THAN 1 MIU/ML Salicylates Level 33.6 MG/DL 28.7 MG/DL Urine Opiates Screen NEG Acetaminophen Level LESS THAN 2.0 MCG/ML Urine Barbiturates Screen NEG Urine Amphetamines Screen NEG Urine Benzodiazepines Screen NEG Urine Cocaine Screen NEG Urine Cannabinoids Screen NEG Ethyl Alcohol Level 210 MG/DL Nasal Screen MRSA (PCR) MRSA NOT DETECTED Protein Corrected Calcium 7.6 MG/DL Test 01/23/18 09:17 01/23/18 11:06 Blood Urea Nitrogen 14 MG/DL Creatinine 0.72 MG/DL Random Glucose 79 MG/DL Total Protein 6.3 GM/DL Albumin 2.7 GM/DL Calcium Level 7.5 MG/DL Alkaline Phosphatase 84 U/L Aspartate Amino Transf (AST/SGOT) 21 U/L Alanine Aminotransferase (ALT/SGPT) 22 U/L Total Bilirubin 0.2 MG/DL Sodium Level 146 MEQ/L Potassium Level 4.0 MEQ/L Chloride Level 115 MEQ/L Carbon Dioxide Level 21.9 MEQ/L Anion Gap 9 MEQ/L Estimat Glomerular Filtration Rate 87 ML/MIN Salicylates Level 23.2 MG/DL Mental Status Examination Appearance: Appropriate Consciousness: Alert Orientation: x4 Motor Activity: Normal gait Speech: Unremarkable Language: Adequate Fund of Knowledge: Adequate Attention and Concentration: Adequate Memory: Unremarkable Mood: Angry, Sad Affect: Sad Thought Process & Associations: Intact Thought Content: Appropriate Hallucination Type: None Delusion Type: None Suicidal Ideation: Yes Suicidal Plan: Yes Suicidal Intention: No Homicidal Ideation: No Homicidal Plan: No Homicidal Intention: No Insight: Poor Judgment: Poor Assessment & Plan Problem List: (1) Bipolar 1 disorder, depressed ICD Codes: F31.9 - Bipolar disorder, unspecified Assessment & Plan: Psychiatric evaluation today the patient presents objectively depressed, tearful, with restricted affect, reporting increased sense of frustration and overwhelmedness in the context of multiple psychosocial stressors. The patient reports sense of hopelessness, helplessness , worthlessness, rejection, with decreased appetite and sleep, persistent preoccupation, suicidal ideation with a plan of overdosing which finally led to an overdose with aspirin with the intention of committing suicide. The patient has an extensive history of bipolar disorder, anxiety, OCD, multiple psychiatric hospitalizations, multiple suicidal attempts, she has not been compliant with medications, in fact, the patient has not taken medication for years now. She has an increased risk of danger to self due to her depression and suicidal thoughts. She needs to be admitted in psychiatry for stabilization and safety. Collateral information is still pending. Will order [facility] protocol for her high risk of alcohol withdrawal. We will start Zoloft 25 mg daily for depression. Remain with 1:1 sitter in the medical floor for safety. Extensive support, motivation and psychoeducation provided. Assessment & Plan Estimated LOS: Audi Fox MD January 23, 2018 11:50
[2018-01-23 12:19] LABS: ALBUMIN 2.6 GM/DL (3.4-5.0); BICARBONATE 22.7 MEQ/L (21.0-32.0); CALCIUM 7.3 MG/DL (8.5-10.1); CALCIUM-PROTEIN CORRECTED 7.8 MG/DL (8.5-10.1); CREATININE 0.67 MG/DL (0.50-1.00); TOTAL BILIRUBIN ADULT 0.2 MG/DL (0.2-1.0); TOTAL PROTEIN 6.1 GM/DL (6.4-8.2)
[2018-01-23] MEDS: SODIUM BICARBONATE 8.4% INJ 150 MEQ in DEXTROSE 5% IN WATE 1000ML INJ 1,000 ML IV SCH ×4 (13:40→16:15)
[2018-01-23] MEDS: SERTRALINE HCL 50 MG TAB PO SCH (13:40)
[2018-01-23 14:14] LABS: ALBUMIN 2.9 GM/DL (3.4-5.0); CALCIUM 7.4 MG/DL (8.5-10.1); CALCIUM-PROTEIN CORRECTED 7.8 MG/DL (8.5-10.1); CREATININE 0.73 MG/DL (0.50-1.00); TOTAL BILIRUBIN ADULT 0.3 MG/DL (0.2-1.0); TOTAL PROTEIN 6.3 GM/DL (6.4-8.2)
[2018-01-23] MEDS: NICOTINE 21 MG/24 HR PATCH T-DERMAL SCH (14:25)
--- NOTE | 2018-01-23 14:41 | EKG ---
Date Performed: 01/23/2018 Time Performed: 02:21:34 PTAGE: 47 years EKG: Baseline artifact present Sinus rhythm POSSIBLE LEFT ATRIAL ENLARGEMENT LOW QRS VOLTAGE IN PRECORDIAL LEADS NONSPECIFIC T-WAVE ABNORMALITY BORDERLINE ECG Prior EKG appears to have limb lead reversal. DOCTOR: Kvng Wiseman Interpretating Date/Time 01/23/2018 14:39:44
[2018-01-24] VITALS (8 sets, daily range): BP systolic 113–126; BP diastolic 58–74; PULSE 49–96; RESP 17–21; TEMP 98.5; O2SAT 95–99
[2018-01-24] MEDS: SODIUM BICARBONATE 8.4% INJ 150 MEQ in DEXTROSE 5% IN WATE 1000ML INJ 1,000 ML IV SCH ×4 (01:46→12:35)
[2018-01-24 04:26] LABS: AUTOMATED NEUTROPHIL # 3.3 TH/MM3 (1.8-7.7); BASOPHIL % 0.8 % (0.0-2.0); EOSINOPHIL # 0.1 TH/MM3 (0-0.4); EOSINOPHIL % 1.6 % (0.0-4.0); HEMOGLOBIN 11.7 GM/DL (11.6-15.3); LYMPH % 34.9 % (9.0-44.0); LYMPHOCYTE # 2.1 TH/MM3 (1.0-4.8); MEAN CELL VOLUME 86.7 FL (80.0-100.0); MEAN CORPUSCULAR HGB CONC 33.4 % (32.0-36.0); MEAN PLATELET VOLUME 7.2 FL (7.0-11.0); MONO % 7.1 % (0.0-8.0); MONOCYTE # 0.4 TH/MM3 (0-0.9); NEUT % 55.6 % (16.0-70.0); PLATELET COUNT 205 TH/MM3 (150-450); RED BLOOD COUNT 4.04 MIL/MM3 (4.00-5.30); RED CELL DISTRIBUTION WIDTH 14.8 % (11.6-17.2); WHITE BLOOD COUNT 5.9 TH/MM3 (4.0-11.0)
[2018-01-24 04:40] LABS: INTERNATIONAL NORMALIZED RATIO 1.1 RATIO; PROTHROMBIN TIME - PATIENT 10.7 SEC (9.8-11.6)
[2018-01-24 04:54] LABS: ALBUMIN 2.5 GM/DL (3.4-5.0); AST (GOT) 16 U/L (15-37); BICARBONATE 28.5 MEQ/L (21.0-32.0); BLOOD UREA NITROGEN 11 MG/DL (7-18); CALCIUM 7.8 MG/DL (8.5-10.1); CHLORIDE 104 MEQ/L (98-107); CREATININE 0.58 MG/DL (0.50-1.00); GLOMERULAR FILTRATION RATE 111 ML/MIN (>89); GLUCOSE,RANDOM 103 MG/DL (74-106); MAGNESIUM 1.9 MG/DL (1.5-2.5); SODIUM (NA) 140 MEQ/L (136-145)
[2018-01-24 04:57] LABS: ALKALINE PHOSPHATASE 73 U/L (45-117); ALT (GPT) 19 U/L (10-53); PHOSPHORUS 3.1 MG/DL (2.5-4.9); TOTAL BILIRUBIN ADULT 0.3 MG/DL (0.2-1.0); TOTAL PROTEIN 5.6 GM/DL (6.4-8.2)
[2018-01-24] MEDS: HEPARIN SODIUM - SQ 10,000 UNITS/ML VIAL SQ SCH ×2 (06:03→13:55)
[2018-01-24] MEDS: SERTRALINE HCL 50 MG TAB PO SCH (08:07)
[2018-01-24] MEDS: DOCUSATE SODIUM 50 MG/SENNA 8.6 MG TAB PO SCH (08:08)
[2018-01-24] MEDS: FAMOTIDINE 20 MG/2 ML VIAL IV PUSH SCH (08:08)
[2018-01-24] MEDS: SODIUM CHLORIDE 0.9% FLUSH 10 ML FLUSH IV FLUSH SCH (08:08)
[2018-01-24] MEDS: NICOTINE 21 MG/24 HR PATCH T-DERMAL SCH (08:08)
[2018-01-24] MEDS ORDERED: REMOVE OLD PATCH T-DERMAL SCH (09:00)
[2018-01-24] MEDS ORDERED: NICO21DI25 T-DERMAL (10:03)
[2018-01-24] MEDS ORDERED: ZOLO50TA PO (10:03)
[2018-01-24] MEDS ORDERED: FLUT1SPR5 EACH NARE (10:03)
[2018-01-24] MEDS ORDERED: VENTAER INH (10:03)
[2018-01-24] MEDS ORDERED: LORA-474 PO (10:07)
[2018-01-24] MEDS ORDERED: LORA-475 PO (10:07)
[2018-01-24] MEDS ORDERED: FLUM0.5I3 IV PUSH (10:07)
[2018-01-24] MEDS ORDERED: LORazepam INJ IV PUSH ×2 (10:07)
--- NOTE | 2018-01-24 10:13 | HHI.DCPOC ---
Discharge Care Plan Diagnosis: (1) Suicidal behavior with attempted self-injury (2) Bipolar 1 disorder, depressed (3) Salicylate intoxication (4) Tobacco abuse Goals to Promote Your Health * To prevent worsening of your condition and complications * To maintain your health at the optimal level Directions to Meet Your Goals Take your medications as prescribed Follow your dietary instruction Follow activity as directed Keep your appointments as scheduled Take your immunizations and boosters as scheduled If your symptoms worsen call your PCP, if no PCP go to Urgent Care Center or Emergency Room Smoking is Dangerous to Your Health. Avoid second hand smoke Call the 24-hour hour crisis hotline for domestic abuse at Zachary Alonzo DO January 24, 2018 10:13
[2018-01-24] MEDS ORDERED: LORazepam 2 MG TAB PO PRN (10:15)
[2018-01-24] MEDS ORDERED: FLUMAZENIL 0.5 MG/5 ML VIAL IV PUSH PRN (10:15)
[2018-01-24] MEDS ORDERED: LORazepam 2 MG/ML VIAL IV PUSH PRN ×2 (10:15)
[2018-01-24] MEDS ORDERED: LORazepam 1 MG TAB PO PRN (10:15)
--- NOTE | 2018-01-24 10:22 | HHI.PR ---
Subjective Remarks The patient said that she had a little bit of ringing in her ears. She said that she has pleurisy and has been coughing a lot. She says she is allergic to black mold but continues to smoke. She says that Zoloft has not worked for her in the past. She said she was recently released from [facility]. Her was at the bedside, who also was recently released from [facility]. Discussed with nursing. Objective Vitals Vital Signs Date Time Temp Pulse Resp B/P (MAP) Pulse Ox O2 Delivery O2 Flow Rate FiO2 01/24/18 10:00 69 01/24/18 08:00 98.5 60 20 121/61 (81) 97 01/24/18 08:00 96 01/24/18 06:00 49 01/24/18 04:00 98.5 50 17 114/58 (76) 95 01/24/18 04:00 50 01/24/18 02:00 53 01/24/18 00:00 98.5 59 21 113/59 (77) 98 01/24/18 00:00 59 01/23/18 22:00 75 01/23/18 20:00 67 01/23/18 20:00 98.2 67 32 117/75 (89) 100 01/23/18 18:00 62 01/23/18 16:00 64 01/23/18 16:00 98.5 69 18 93/53 (66) 97 01/23/18 14:00 62 01/23/18 12:00 64 01/23/18 12:00 98.1 64 16 113/66 (82) 99 I/O 01/23/18 01/23/18 01/23/18 01/24/18 01/24/18 01/24/18 07:00 15:00 23:00 07:00 15:00 23:00 Intake Total 1000 ml 1000 ml 1640 ml 1630 ml Output Total 300 ml 1400 ml Balance 700 ml 1000 ml 240 ml 1630 ml Intake Oral 840 ml 480 ml IV Total 1000 ml 1000 ml 800 ml 1150 ml Output Urine Total 300 ml 1400 ml # Voids 4 # Bowel Movements 1 0 # Sanitary Pads 1 Pads 1 Pads Result Diagram: 01/24/18 0415 01/24/18414 Imaging Last Impressions Chest X-Ray 01/23/18225 Signed Impressions: CONCLUSION: No acute cardiopulmonary disease. Objective Remarks GENERAL: Well-nourished, well-developed patient. SKIN: Warm and dry. HEAD: Normocephalic. EYES: No scleral icterus. No injection or drainage. NECK: Supple, trachea midline. No JVD or lymphadenopathy. CARDIOVASCULAR: Bradycardia without murmurs, gallops, or rubs. RESPIRATORY: Diffuse wheezing. GASTROINTESTINAL: Abdomen soft, non-tender, nondistended. MUSCULOSKELETAL: No cyanosis, or edema. BACK: Nontender without obvious deformity. NEURO: The patient is alert and oriented to person, place, and time with normal speech. A/P Assessment and Plan Aspirin overdose Poison control and nephrology input appreciated. Charcoal administered in the ED and continue every 2 hours 3 doses. Salicylate levels trending down. - IV fluid hydration. - Alkalinization of urine with sodium bicarbonate. - Monitor labs frequently. Stable. Depression With suicidal ideation. Psychiatry evaluation appreciated. - transfer to psychiatry. - continue Zoloft. Nicotine abuse The pt continues to smoke and has wheezing on exam. - cessation instruction. - albuterol and Flonase as needed. - nicotine patch. Alcohol abuse The pt endorses drinking heavily. - CIWA protocol. - cessation instruction. DVT GI prophylaxis -Hadley's and SCDs -Subcu heparin -Pepcid Discharge Planning D/c to psych Zachray Alonzo DO January 24, 2018 10:22
[2018-01-24] MEDS ORDERED: POTASSIUM CHLORIDE 20 MEQ CONTROLLED RELEASE TAB PO ONE (11:00)
== END 2018-01-24 15:20 | DRG 918 ==
LOC: NEPE 02:14 → NEDA 03:39 → HIME 04:45
PROVIDERS: ADMIT Hospitalist; ATTEND Hospitalist
DX: T39.012A Poisoning by aspirin, intentional self-harm, initial encounter (principal); E87.3 Alkalosis; R45.851 Suicidal ideations; F20.9 Schizophrenia, unspecified; F31.9 Bipolar disorder, unspecified; F42.9 Obsessive-compulsive disorder, unspecified; F10.10 Alcohol abuse, uncomplicated; F41.9 Anxiety disorder, unspecified; F17.210 Nicotine dependence, cigarettes, uncomplicated; Y90.7 Blood alcohol level of 200-239 mg/100 ml; I25.2 Old myocardial infarction; Z91.14 Patient's other noncompliance with medication regimen; Z91.5 Personal history of self-harm; Z81.8 Family history of other mental and behavioral disorders
CPT/HCPCS: 36600; 71045; 80053; 80307; 81001; 82805; 83605; 83735; 83930; 83935; 84100; 84702; 85025; 85610; 85730; 87641; 93005; 94664; J1644; J2405; J7030; J7070

== ENCOUNTER 2018-01-24 15:47 | Inpatient (IN) | payer SELFPAY ==
[~2018-01-24 15:47] MED LIST changes: -CEPH-460 PO; +FLUM0.5I3 IV PUSH; +FLUT1SPR5 EACH NARE; +LORA-474 PO; +LORA-475 PO; +LORazepam INJ IV PUSH; +NICO21DI25 T-DERMAL; -PROM25TA10 PO; +VENTAER INH; +ZOLO50TA PO
[2018-01-24] MEDS ORDERED: ALUMINUM/MAGNESIUM/SIMETH 30 ML CUP PO PRN (20:45)
[2018-01-24] MEDS ORDERED: LORazepam 0.5 MG TAB PO PRN (20:45)
[2018-01-24] MEDS ORDERED: LORazepam 2 MG/ML VIAL IM PRN ×6 (20:45→22:30)
[2018-01-24] MEDS ORDERED: MAGNESIUM HYDROXIDE SUSP 30 ML CUP PO PRN (20:45)
[2018-01-24] MEDS ORDERED: ACETAMINOPHEN 325 MG TAB PO PRN (20:45)
[2018-01-24] MEDS: LORazepam 1 MG TAB PO PRN (22:29)
[2018-01-24] MEDS ORDERED: FLUMAZENIL 0.5 MG/5 ML VIAL IV PUSH PRN (22:30)
[2018-01-24] MEDS ORDERED: LORazepam 2 MG TAB PO PRN (22:30)
[2018-01-25 06:31] VITALS: BP 126/79; PULSE 67; RESP 16; TEMP 98.2; O2SAT 97
[2018-01-25] MEDS: NICOTINE 21 MG/24 HR PATCH T-DERMAL SCH (08:56)
[2018-01-25] MEDS: FOLIC ACID 1 MG TAB PO SCH (08:58)
[2018-01-25] MEDS: REMOVE OLD NICODERM (NICOTINE) PATCH T-DERMAL SCH ×2 (08:58→21:00)
[2018-01-25] MEDS: THIAMINE HCL 100 MG TAB PO SCH (08:58)
[2018-01-25] MEDS: MULTIVITAMINS/MINERALS THERAPEUTIC TAB PO SCH (08:58)
[2018-01-25] MEDS ORDERED: NICOTINE 21 MG/24 HR PATCH T-DERMAL SCH (09:00)
[2018-01-25 11:39] LABS: BICARBONATE 28.1 MEQ/L (21.0-32.0); BLOOD UREA NITROGEN 10 MG/DL (7-18); CALCIUM 9.2 MG/DL (8.5-10.1); CHLORIDE 103 MEQ/L (98-107); CHOLESTEROL 205 MG/DL (120-200); CHOLESTEROL/ HDL RATIO 2.64 RATIO; CREATININE 0.72 MG/DL (0.50-1.00); GLOMERULAR FILTRATION RATE 87 ML/MIN (>89); GLUCOSE,RANDOM 99 MG/DL (74-106); HDL CHOLESTEROL 77.5 MG/DL (40.0-60.0); LDL CHOLESTEROL 108 MG/DL (0-99); SODIUM (NA) 138 MEQ/L (136-145); TRIGLYCERIDES 98 MG/DL (42-150)
[2018-01-25] MEDS ORDERED: LORazepam 2 MG/ML VIAL IV PUSH PRN ×6 (13:45)
[2018-01-25] MEDS ORDERED: FLUMAZENIL 0.5 MG/5 ML VIAL IV PUSH PRN (13:45)
[2018-01-25] MEDS ORDERED: LORazepam 1 MG TAB PO PRN ×2 (13:45)
[2018-01-25] MEDS ORDERED: FLUMAZENIL 1 MG/10 ML VIAL IV PUSH PRN (13:45)
[2018-01-25] MEDS ORDERED: diphenhydrAMINE HCL 50 MG CAP PO PRN (13:45)
[2018-01-25] MEDS ORDERED: hydrOXYzine HCL 50 MG TAB PO PRN (13:45)
[2018-01-25] MEDS ORDERED: LORazepam 2 MG TAB PO PRN ×2 (13:45)
[2018-01-25] MEDS: LORazepam 1 MG TAB PO PRN ×2 (14:00→21:30)
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
[2018-01-25] MEDS ORDERED: ALBUTEROL SULFATE 90 MCG/ACT HFA 8 GM INHALER INH PRN (16:30)
--- NOTE | 2018-01-25 16:56 | PD.CONS ---
HPI Service [facility] Consult Requested By Psychiatry team Reason for Consult Assist with medical management Primary Care Physician No Primary Care Physician Diagnoses: History of Present Illness Patient is a 47-year-old female who has past medical history of bipolar disorder , schizophrenia, OCD initially came to the hospital due to and potentially overdosing on aspirin. Charcoal administered in the ED. her salicylate levels have been trending down. She was observed and critical care unit. She is now admitted to inpatient psychiatry unit for further evaluation. Consulted for assistance with medical management. Patient seen and examined today. States she has significantly improved. States that her ringing of the ears are is almost back to normal. She states that she is in a real stressful situation with her and her work that she has been binge drinking alcohol. During that she took aspirin to intentionally hurt herself. States that she is better and wanting to go home. States she has history of COPD. Admits to smoking a pack a day. States that she thinks is not from her smoking but her work is also contributing to her COPD. Discussed extensively with patient that smoking is her biggest risk factor for COPD. Reports occasional shortness of breath and dyspnea. Reports postnasal drip. Reports cough. Denies chest pain, palpitations, headaches, fever, chills, nausea, vomiting, diarrhea. Review of Systems Except as stated in HPI: all other systems reviewed are Neg Past Family Social History Allergies: Coded Allergies: No Known Allergies (Unverified Allergy, Unknown, 10/28/17) Past Medical History Bipolar disorder COPD OCD Depression Past Surgical History None Reported Medications Reported Meds & Active Scripts Active Flumazenil 0.1 Mg/Ml Inj 0.2 Mg IV PUSH Q1M PRN [LORazepam INJ] 2 MG/ML Inj 2 Mg IV PUSH Q15M PRN [LORazepam INJ] 2 MG/ML Inj 2 Mg IV PUSH Q1H PRN Ativan (Lorazepam) 2 Mg Tab 2 Mg PO Q2H PRN Ativan (Lorazepam) 1 Mg Tab 1 Mg PO Q4H PRN Ventolin Hfa 18 GM Inh (Albuterol Sulfate) 90 Mcg/Act Aer 2 Puff INH Q4-6H PRN Flonase Nasal [place] (Fluticasone Nasal [place]) 50 Mcg/Act [place] 100 Mcg EACH NARE BID Zoloft (Sertraline HCl) 50 Mg Tab 25 Mg PO DAILY Eq Nicotine (Nicotine) 21 Mg/24 Hour Dis 1 Patch T-DERMAL DAILY Active Ordered Medications Current Medications Medications (Trade) Dose Ordered Sig/Vel Route Start Time Stop Time Status Last Admin (Ativan) 1 mg Q6H PRN PO 01/24/18 20:45 (Ativan Inj) 1 mg Q6H PRN IM 01/24/18 20:45 (Tylenol) 650 mg Q4H PRN PO 01/24/18 20:45 (Milk Of Magnesia Liq) 30 ml DAILY PRN PO 01/24/18 20:45 (Mag-Al Plus Susp Liq) 30 ml Q6H PRN PO 01/24/18 20:45 (Habitrol 21 Mg Patch.24 Hr) 1 patch DAILY T-DERMAL 01/24/18 20:45 01/25/18 08:56 Miscellaneous Information 1 DAILY T-DERMAL 01/25/18 09:00 01/25/18 08:58 (Folate) 1 mg DAILY PO 01/25/18 09:00 01/30/18 08:59 01/25/18 08:58 (Vitamin B1) 100 mg DAILY PO 01/25/18 09:00 01/25/18 08:58 (Theragran M Tab) 1 tab DAILY PO 01/25/18 09:00 01/30/18 08:59 01/25/18 08:58 (Romazicon Inj) 0.2 mg Q1M PRN IV PUSH 01/24/18 22:30 (Ativan) 1 mg Q4H PRN PO 01/24/18 22:30 01/25/18 14:00 (Ativan Inj) 1 mg Q4H PRN IM 01/24/18 22:30 (Ativan) 2 mg Q2H PRN PO 01/24/18 22:30 01/25/18 09:48 (Ativan Inj) 2 mg Q2H PRN IM 01/24/18 22:30 (Ativan Inj) 2 mg Q1H PRN IM 01/24/18 22:30 (Ativan Inj) 2 mg Q15M PRN IM 01/24/18 22:30 (Benadryl) 50 mg HS PRN PO 01/25/18 13:45 (Atarax) 50 mg Q6H PRN PO 01/25/18 13:45 (Romazicon Inj) 0.2 mg Q1M PRN IV PUSH 01/25/18 13:45 (Ativan) 1 mg Q4H PRN PO 01/25/18 13:45 (Ativan Inj) 1 mg Q4H PRN IV PUSH 01/25/18 13:45 (Ativan) 2 mg Q2H PRN PO 01/25/18 13:45 (Ativan Inj) 2 mg Q2H PRN IV PUSH 01/25/18 13:45 (Ativan Inj) 2 mg Q1H PRN IV PUSH 01/25/18 13:45 (Ativan Inj) 2 mg Q15M PRN IV PUSH 01/25/18 13:45 (Romazicon Inj) 0.2 mg Q1M PRN IV PUSH 01/25/18 13:45 (Zoloft) 25 mg DAILY PO 01/26/18 09:00 (Ativan Inj) 2 mg Q15M PRN IV PUSH 01/25/18 13:45 (Ativan Inj) 2 mg Q1H PRN IV PUSH 01/25/18 13:45 (SEROquel) 50 mg HS PO 01/25/18 21:00 (Flonase Kamaljit Spr) 2 spray BID NASAL 01/25/18 21:00 (Habitrol 21 Mg Patch.24 Hr) 1 patch DAILY T-DERMAL 01/26/18 09:00 Miscellaneous Information 1 HS T-DERMAL 01/25/18 21:00 (Proair Hfa Inh) 2 puff Q4HR PRN INH 01/25/18 16:30 01/25/18 17:17 (Symbicort 160-4.5 Mcg Inh) 2 puff Q12HR INH 01/25/18 21:00 Family History Father has heart disease Mother had a stroke, heart disease Social History Lives with Occasional alcohol use, however prior to hospitalization patient has binge drinking every day Current day smoker, 1 pack per day Denies illicit drug use Physical Exam Vital Signs Vital Signs Date Time Temp Pulse Resp B/P (MAP) Pulse Ox O2 Delivery O2 Flow Rate FiO2 01/25/18 06:31 98.2 67 16 126/79 (95) 97 Physical Exam GENERAL: This is a well-nourished, well-developed patient, in no apparent distress. SKIN: No rashes, ecchymoses or lesions. Cool and dry. HEAD: Atraumatic. Normocephalic. No temporal or scalp tenderness. EYES: Pupils equal round and reactive. Extraocular motions intact. No scleral icterus. No injection or drainage. ENT: Nose without bleeding. Throat without erythema. Uvula midline. Airway patent. NECK: Trachea midline. CARDIOVASCULAR: Regular rate and rhythm without murmurs, gallops, or rubs. RESPIRATORY: Coarse breath sounds. Mild expiratory wheezes GASTROINTESTINAL: Abdomen soft, non-tender, nondistended. MUSCULOSKELETAL: Extremities without clubbing, cyanosis, or edema. NEUROLOGICAL: Awake and alert. Cranial nerves II through XII intact. Motor and sensory grossly within normal limits. Normal speech. Laboratory Laboratory Tests Test 01/25/18 10:25 Blood Urea Nitrogen 10 Creatinine 0.72 Random Glucose 99 Calcium Level 9.2 Sodium Level 138 Potassium Level 4.6 Chloride Level 103 Carbon Dioxide Level 28.1 Anion Gap 7 Estimat Glomerular Filtration Rate 87 Hemoglobin A1c 5.0 Triglycerides Level 98 Cholesterol Level 205 LDL Cholesterol 108 HDL Cholesterol 77.5 Cholesterol/HDL Ratio 2.64 Result Diagram: 01/25/18 1025 Assessment and Plan Problem List: (1) Alcohol abuse with intoxication ICD Code: F10.129 - Alcohol abuse with intoxication, unspecified (2) Bipolar I disorder, most recent episode depressed, severe without psychotic features ICD Code: F31.4 - Bipolar disorder, current episode depressed, severe, without psychotic features (3) Salicylate intoxication ICD Code: T39.091A - Poisoning by salicylates, accidental (unintentional), initial encounter Status: Acute (4) COPD (chronic obstructive pulmonary disease) ICD Code: J44.9 - COPD (chronic obstructive pulmonary disease) Status: Acute Assessment and Plan Patient is a 47-year-old female who has past medical history of bipolar disorder , schizophrenia, OCD initially came to the hospital due to and potentially overdosing on aspirin. Charcoal administered in the ED. her salicylate levels have been trending down. She was observed and critical care unit. She is now admitted to inpatient psychiatry unit for further evaluation. Consulted for assistance with medical management. Bipolar disorder, schizophrenia, OCD -Managed by psychiatry COPD, mild exacerbation -Resume home medication Provera, Flonase -Add Symbicort twice daily. Discussed with patient use of Symbicort -Discussed with patient smoking cessation which is important in controlling COPD -Monitor respiratory status Alcohol abuse Tobacco abuse -Counseled. [place] Protocol -Nicotine patch -Folic acid, thiamine, multivitamins DVT prop early ambulation Code Status Full code Discussed Condition With Patient, nurse Tiana Knapp January 25, 2018 16:56
[2018-01-25 18:00] VITALS: BP 138/71; PULSE 93; RESP 16; TEMP 98.3; O2SAT 98
[2018-01-25] MEDS: BUDESONIDE-FORMOTEROL 160/4.5 MCG INHALER INH SCH (21:00)
[2018-01-25] MEDS ORDERED: FLUTICASONE 100 MCG EACH NARE SCH (21:00)
[2018-01-25] MEDS: QUEtiapine FUMARATE 100 MG TAB PO SCH (21:00)
[2018-01-25] MEDS: FLUTICASONE PROPIONATE 50 MCG/ACT 16 GM NASAL SPRAY NASAL SCH (21:00)
[2018-01-26 06:36] VITALS: BP 118/58; PULSE 74; RESP 18; TEMP 98.1; O2SAT 100
[2018-01-26] MEDS ORDERED: NICOTINE 21 MG/24 HR PATCH T-DERMAL SCH (09:00)
[2018-01-26] MEDS: REMOVE OLD NICODERM (NICOTINE) PATCH T-DERMAL SCH ×2 (09:00→21:00)
[2018-01-26] MEDS: NICOTINE 21 MG/24 HR PATCH T-DERMAL SCH ×2 (09:00)
[2018-01-26] MEDS: BUDESONIDE-FORMOTEROL 160/4.5 MCG INHALER INH SCH ×2 (09:53→21:00)
[2018-01-26] MEDS: MULTIVITAMINS/MINERALS THERAPEUTIC TAB PO SCH (09:54)
[2018-01-26] MEDS: FLUTICASONE PROPIONATE 50 MCG/ACT 16 GM NASAL SPRAY NASAL SCH ×2 (09:54→21:00)
[2018-01-26] MEDS: THIAMINE HCL 100 MG TAB PO SCH (09:54)
[2018-01-26] MEDS: FOLIC ACID 1 MG TAB PO SCH (09:54)
[2018-01-26] MEDS: SERTRALINE HCL 50 MG TAB PO SCH (09:54)
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
[2018-01-26] MEDS: QUEtiapine FUMARATE 100 MG TAB PO SCH (21:01)
[2018-01-26] MEDS: LORazepam 1 MG TAB PO PRN (21:07)
[2018-01-27 05:18] VITALS: BP 109/66; PULSE 72; RESP 16; TEMP 97.6; O2SAT 99
[2018-01-27] MEDS: REMOVE OLD NICODERM (NICOTINE) PATCH T-DERMAL SCH ×2 (09:00→21:00)
[2018-01-27] MEDS: NICOTINE 21 MG/24 HR PATCH T-DERMAL SCH ×2 (09:00)
[2018-01-27] MEDS: MULTIVITAMINS/MINERALS THERAPEUTIC TAB PO SCH (09:21)
[2018-01-27] MEDS: FLUTICASONE PROPIONATE 50 MCG/ACT 16 GM NASAL SPRAY NASAL SCH ×2 (09:21→21:33)
[2018-01-27] MEDS: BUDESONIDE-FORMOTEROL 160/4.5 MCG INHALER INH SCH ×2 (09:21→21:33)
[2018-01-27] MEDS: FOLIC ACID 1 MG TAB PO SCH (09:22)
[2018-01-27] MEDS: SERTRALINE HCL 50 MG TAB PO SCH (09:22)
[2018-01-27] MEDS: THIAMINE HCL 100 MG TAB PO SCH (09:22)
--- NOTE | 2018-01-27 12:13 | HHI.PYPN ---
Subjective Chief Complaint: Depressed intoxicated with severe salicylate overdose and suicide attempt Remarks Patient seen and examined with nurse in weekend coverage. Chart reviewed. Case discussed with nursing staff. No behavioral issues noted. On my examination today, the patient is in good spirits. She tells me that it has been sometime since she has felt so well. Sleeping well. Denies SI or HI. Says that the medications are making her feel "awesome" and denies side effects from medications. No physical complaints. Patient is pleased with current psychotropics and does not wish to adjust them at this time. Review of Systems Except as stated in HPI: all other systems reviewed are Neg Mental Status Examination Appearance: Appropriate Consciousness: Alert Orientation: x4 Motor Activity: Other (No motor abnormalities noted) Speech: Unremarkable (Grossly intact on clinical exam) Language: Adequate Fund of Knowledge: Adequate Attention and Concentration: Adequate Memory: Unremarkable Mood: Appropriate Affect: Appropriate, Euthymic Thought Process & Associations: Intact, Logical, Linear Thought Content: Appropriate Hallucination Type: None Delusion Type: None Suicidal Ideation: No Suicidal Plan: No Suicidal Intention: No Homicidal Ideation: No Homicidal Plan: No Homicidal Intention: No Insight: Fair Judgment: Impulsive Results Labs Labs reviewed Vitals/IOs Vital Signs Date Time Temp Pulse Resp B/P (MAP) Pulse Ox O2 Delivery O2 Flow Rate FiO2 01/27/18 05:18 97.6 72 16 109/66 (80) 99 Assessment & Plan Problem List: (1) Alcohol abuse with intoxication ICD Codes: F10.129 - Alcohol abuse with intoxication, unspecified (2) Bipolar I disorder, most recent episode depressed, severe without psychotic features ICD Codes: F31.4 - Bipolar disorder, current episode depressed, severe, without psychotic features Assessment & Plan Continue current psychiatric medications as ordered. Continue to monitor on the inpatient unit. Continue other medications and care as ordered. Justification for Cont. Inpt. Risk for decompensation Discharge Planning As ordered by attending psychiatrist Request HC Surrog/Guard Advoc?: No Jose Maria Rick MD January 27, 2018 12:13
--- NOTE | 2018-01-27 15:06 | HHI.PR ---
Subjective Remarks Follow-up visit bipolar disorder, COPD, EtOH, tobacco abuse. Patient seen today. with the patient. Reports she is doing well with that the inhalers have been working for her. Denies any shortness of breath or dyspnea. Denies any other complaints. Objective Vitals Vital Signs Date Time Temp Pulse Resp B/P (MAP) Pulse Ox O2 Delivery O2 Flow Rate FiO2 01/27/18 05:18 97.6 72 16 109/66 (80) 99 I/O 01/26/18 01/26/18 01/26/18 01/27/18 01/27/18 01/27/18 07:00 15:00 23:00 07:00 15:00 23:00 Intake Total 360 ml 360 ml Balance 360 ml 360 ml Intake Oral 360 ml 360 ml Result Diagram: 01/25/18 1025 Objective Remarks GENERAL: This is a well-nourished, well-developed patient, in no apparent distress. CARDIOVASCULAR: Regular rate and rhythm without murmurs, gallops, or rubs. RESPIRATORY: Minimal wheeze. Improved. GASTROINTESTINAL: Abdomen soft, non-tender, nondistended. Normal active bowel sounds MUSCULOSKELETAL: Extremities without clubbing, cyanosis, or edema. NEURO: Alert & Oriented x4 to person, place, time, situation. Moves all ext x4 A/P Problem List: (1) Alcohol abuse with intoxication ICD Code: F10.129 - Alcohol abuse with intoxication, unspecified (2) Bipolar I disorder, most recent episode depressed, severe without psychotic features ICD Code: F31.4 - Bipolar disorder, current episode depressed, severe, without psychotic features (3) Salicylate intoxication ICD Code: T39.091A - Poisoning by salicylates, accidental (unintentional), initial encounter Status: Acute (4) COPD (chronic obstructive pulmonary disease) ICD Code: J44.9 - COPD (chronic obstructive pulmonary disease) Status: Acute Assessment and Plan Patient is a 47-year-old female who has past medical history of bipolar disorder , schizophrenia, OCD initially came to the hospital due to and potentially overdosing on aspirin. Charcoal administered in the ED. her salicylate levels have been trending down. She was observed and critical care unit. She is now admitted to inpatient psychiatry unit for further evaluation. Consulted for assistance with medical management. Bipolar disorder, schizophrenia, OCD -Managed by psychiatry COPD, mild exacerbation -Resume home medication Proair, Flonase -Symbicort twice daily. Discussed with patient use of Symbicort -Discussed with patient smoking cessation which is important in controlling COPD -Improved Alcohol abuse Tobacco abuse -Counseled. [facility] Protocol -Nicotine patch -Folic acid, thiamine, multivitamins DVT prop early ambulation Stable from Hospitalist standpoint. We will sign off. Reconsult as needed. Medically clear for discharge Tiana Knapp January 27, 2018 15:06
[2018-01-27 18:57] VITALS: BP 112/78; PULSE 70; RESP 16; TEMP 98.2; O2SAT 97
[2018-01-27] MEDS: QUEtiapine FUMARATE 100 MG TAB PO SCH (21:33)
[2018-01-28 07:04] VITALS: BP 105/58; PULSE 65; RESP 16; TEMP 98.1; O2SAT 99
[2018-01-28] MEDS: REMOVE OLD NICODERM (NICOTINE) PATCH T-DERMAL SCH (09:00)
[2018-01-28] MEDS: NICOTINE 21 MG/24 HR PATCH T-DERMAL SCH ×2 (09:00)
[2018-01-28] MEDS: MULTIVITAMINS/MINERALS THERAPEUTIC TAB PO SCH (09:49)
[2018-01-28] MEDS: THIAMINE HCL 100 MG TAB PO SCH (09:49)
[2018-01-28] MEDS: FOLIC ACID 1 MG TAB PO SCH (09:49)
[2018-01-28] MEDS: SERTRALINE HCL 50 MG TAB PO SCH (09:49)
[2018-01-28] MEDS: FLUTICASONE PROPIONATE 50 MCG/ACT 16 GM NASAL SPRAY NASAL SCH (09:50)
[2018-01-28] MEDS: BUDESONIDE-FORMOTEROL 160/4.5 MCG INHALER INH SCH (09:50)
[2018-01-28] MEDS ORDERED: FLUT1SPR5 EACH NARE (13:18)
[2018-01-28] MEDS ORDERED: THIA100 PO (13:18)
[2018-01-28] MEDS ORDERED: ZOLO50TA PO (13:18)
[2018-01-28] MEDS ORDERED: VENTAER INH (13:18)
[2018-01-28] MEDS ORDERED: SERO50TA PO (13:18)
[2018-01-28] MEDS ORDERED: THERM PO (13:18)
[2018-01-28] MEDS ORDERED: FOLI1TAB6 PO (13:18)
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
== END 2018-01-28 15:00 | disposition home or self-care (01) | DRG 885 ==
LOC: H260 15:47
PROVIDERS: ADMIT Psychiatry & Neurology Psychiatry; ATTEND Psychiatry & Neurology Psychiatry
DX: F31.4 Bipolar disorder, current episode depressed, severe, without psychotic features (principal); J44.1 Chronic obstructive pulmonary disease with (acute) exacerbation; F10.129 Alcohol abuse with intoxication, unspecified; F17.210 Nicotine dependence, cigarettes, uncomplicated; Z62.810 Personal history of physical and sexual abuse in childhood
CPT/HCPCS: 80048; 80061; 83036